=== PATIENT | female | born 1970 | race Caucasian/White ===

== ENCOUNTER 2023-03-25 10:37 | Outpatient (OUT) | payer OTHER, SELFPAY ==
--- NOTE | 2023-03-25 | XR_ITS ---
The [address] [address] Patient Name: EARL BERKOWITZ MRN: [id number] date: 1970 Sex: F Assigned Patient Location: LAB Current Patient Location: Accession/Order Number: [id number] Exam Date: 03/25/2023 11:05 Report Date: 03/27/2023 09:20 At the request of: YENY ELLIOTT Procedure: XR abdomen 1V EXAM: XR abdomen 1V HISTORY: LEFT FLANK PAIN COMPARISON: None. TECHNIQUE: AP view of the abdomen. FINDINGS: Nonobstructive bowel gas pattern is noted. There is no suspicious calcification. The osseous structures are intact. XR/XR abdomen 1V IMPRESSION: Unremarkable exam. Electronically authenticated by: EVELIA PETERSON Date: 03/27/2023 09:20
[2023-03-25 12:25] LABS: Bilirubin Urine NEGATIVE (NEGATIVE); Blood Urine TRACE-I (NEGATIVE); Clarity Urine CLEAR (CLEAR); Color Urine YELLOW (YELLOW); Glucose Urine UA NEGATIVE (NEGATIVE); Ketones Urine NEGATIVE (NEGATIVE); Leukocyte Esterase Urine NEGATIVE (NEGATIVE); Nitrite Urine NEGATIVE (NEGATIVE); Protein Urine NEGATIVE (NEG/TRACE); Specific Gravity Urine 1.025 (1.005-1.025); Urobilinogen Urine 0.2 EU/dL (0.2-1.0)
[2023-03-25 12:52] LABS: Bacteria Urine NONE SEEN #/HPF (NONE SEEN); Mucus Urine TRACE (NONE SEEN); Squamous Epithelial Cell Urine RARE #/LPF (NONE/RARE); WBC Urine 0-2 #/HPF (NONE SEEN)
[2023-03-25 12:53] LABS: Cast Seen? NONE SEEN #/LPF (NONE SEEN); Crystals Seen? None Seen #/HPF (None Seen); Urine Culture Indicated NO
== END 2023-03-25 10:38 | disposition home or self-care (01) ==
PROVIDERS: PCP Nurse Practitioner; Visit Provider Nurse Practitioner
DX: R10.9 Unspecified abdominal pain (principal)
CPT/HCPCS: 74018; 81001

== ENCOUNTER 2023-04-26 12:48 | Outpatient (OUT) | payer OTHER, SELFPAY ==
[2023-04-26 13:07] LABS: Bilirubin Urine NEGATIVE (NEGATIVE); Blood Urine TRACE-L (NEGATIVE); Clarity Urine CLEAR (CLEAR); Color Urine LT. YELLOW (YELLOW); Glucose Urine UA NEGATIVE (NEGATIVE); Ketones Urine NEGATIVE (NEGATIVE); Leukocyte Esterase Urine TRACE (NEGATIVE); Nitrite Urine NEGATIVE (NEGATIVE); Protein Urine NEGATIVE (NEG/TRACE); Specific Gravity Urine <=1.005 (1.005-1.025); Urobilinogen Urine 0.2 EU/dL (0.2-1.0)
[2023-04-26 13:31] LABS: Bacteria Urine NONE SEEN #/HPF (NONE SEEN); Cast Seen? NONE SEEN #/LPF (NONE SEEN); Crystals Seen? None Seen #/HPF (None Seen); Mucus Urine NONE SEEN (NONE SEEN); RBC Urine 0-2 #/HPF (0-2); Squamous Epithelial Cell Urine RARE #/LPF (NONE/RARE); WBC Urine 0-2 #/HPF (NONE SEEN)
== END 2023-04-26 12:49 | disposition home or self-care (01) ==
LOC: LAB 04-28 12:53
PROVIDERS: PCP Nurse Practitioner; Visit Provider Nurse Practitioner
DX: R31.21 Asymptomatic microscopic hematuria (principal)
CPT/HCPCS: 81001

== ENCOUNTER 2023-04-29 09:30 | Outpatient (OUT) | payer OTHER, SELFPAY ==
--- NOTE | 2023-04-29 | CT_ITS ---
[address] [address] Patient Name: EARL BERKOWITZ MRN: [id number] date: 1970 Sex: F Assigned Patient Location: CT Current Patient Location: CT Accession/Order Number: [id number] Exam Date: 04/29/2023 09:57 Report Date: 04/29/2023 16:09 At the request of: YENY ELLIOTT Procedure: CT abdomen pelvis wo con EXAM: CT abdomen pelvis wo con; [id number] REASON FOR EXAM: Left flank pain R10., Asymptomatic microscopic hematuria R31 TECHNIQUE: Helical CT images of the abdomen and pelvis were obtained without IV contrast. Multiplanar reformats were generated at the scanner. Dose reduction technique used: Automated exposure control and/or adjustment of the mA and/or kV according to patient size and/or use of iterative reconstruction technique. COMPARISON: None. FINDINGS: Note: Compared with a contrast-enhanced CT exam, noncontrast images are relatively insensitive for detection of solid organ and vascular abnormalities. Visualized Chest: No pleural effusion or any significant pulmonary findings. Abdomen: Liver: Mildly enlarged measuring 18.8 cm in greatest craniocaudad dimension (normal up to 18 cm). Gallbladder: No calcified gallstones. No acute inflammatory changes. Bile Ducts: No significant biliary ductal dilatation. Pancreas: No ductal dilatation or inflammatory changes. Spleen: No splenomegaly. Adrenals: No nodules. Kidneys: -No stones or hydronephrosis. Vascular: No aortic aneurysm. Lymph Nodes: No adenopathy. Abdominal Wall: No hernia or mass. Pelvis: No mass or adenopathy. No bladder stones. Bowel/Peritoneal Cavity/Mesentery: -No bowel obstruction or significant ileus. -No acute inflammatory changes. -No free air or free fluid. Musculoskeletal: No acute fracture or suspicious osseous lesion. CT/CT abdomen pelvis wo con IMPRESSION: 1. No kidney stones or hydronephrosis. 2. Borderline hepatomegaly. Electronically authenticated by: CHRIS MONSALVE Date: 04/29/2023 16:09
== END 2023-04-29 09:31 | disposition home or self-care (01) ==
PROVIDERS: PCP Nurse Practitioner; Visit Provider Nurse Practitioner
DX: R10.9 Unspecified abdominal pain (principal); R31.21 Asymptomatic microscopic hematuria
CPT/HCPCS: 74176

== ENCOUNTER 2023-08-09 20:49 | Emergency (ER) | payer OTHER, SELFPAY ==
[2023-08-09] VITALS (16 sets, daily range): BP systolic 107–149; BP diastolic 56–81; PULSE 70–85; RESP 14–26; TEMP 36.5; O2SAT 94–99; BMI 23.0
--- NOTE | 2023-08-09 21:09 | ECG_ITS ---
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
--- NOTE | 2023-08-09 21:16 | ED.GENADUL1 ---
Documented by User: KATERINA Valdez 08/09/23 22:13 HPI - General Adult General Chief complaint: Chest Pain Stated complaint: Upper Resiratory Infection Time Seen by Provider: 08/09/23 20:54 Source: patient and family Mode of arrival: walk-in Limitations: no limitations History of Present Illness HPI narrative: Patient is a 53-year-old female who presents to the emergency department with pain in the anterior lower chest and bilateral shoulders for the past several days. She thinks she may have pneumonia. She is a regular smoker and has chronic mild coughing. She has had no fevers, sputum production. She does not complain of shortness of breath. She does have a history of upper abdominal pain and recently had endoscopy performed which was unremarkable. No medications taken prior to arrival today. She denies any history of heart or lung problems. Related Data Home Medications Medication Instructions Recorded Confirmed cetirizine 10 mg tablet mg 08/09/23 triamcinolone acetonide 55 mcg intranasal 08/09/23 nasal spray aerosol Allergies Allergy/AdvReac Type Severity Reaction Status Date / Time nitrofurantoin Allergy Unknown Verified 08/09/23 21:10 [From Macrobid] Review of Systems ROS Constitutional Denies: fever or chills Ears, nose, mouth, and throat Denies: throat pain or nasal congestion Cardiovascular Reports: chest pain Respiratory Reports: cough; Denies: shortness of breath Gastrointestinal Reports: abdominal pain; Denies: nausea or vomiting Musculoskeletal Reports: back pain Integumentary/Breast Denies: rash Neurological Denies: headache PFSH PFSH Social History Smoking status: Current every day smoker Exam Constitutional Vital Signs, click to edit/add: Last Vital Signs Temp 97.7 F 08/09/23 21:05 Pulse 80 08/09/23 21:05 Resp 18 08/09/23 21:05 BP 149/78 H 08/09/23 21:05 Pulse Ox 96 08/09/23 21:05 O2 Del Method Room Air 08/09/23 21:05 Course Vital Signs Vital signs: Vital Signs Temperature 97.7 F 08/09/23 21:05 Pulse Rate 80 08/09/23 21:05 Respiratory Rate 18 08/09/23 21:05 Blood Pressure 149/78 H 08/09/23 21:05 Pulse Oximetry 96 08/09/23 21:05 Oxygen Delivery Method Room Air 08/09/23 21:05 Temperature 97.7 F 08/09/23 21:05 Pulse Rate 80 08/09/23 21:05 Respiratory Rate 18 08/09/23 21:05 Blood Pressure 149/78 H 08/09/23 21:05 Pulse Oximetry 96 08/09/23 21:05 Oxygen Delivery Method Room Air 08/09/23 21:05 Medical Decision Making MDM Narrative Medical decision making narrative: 2213: Patient declined medication for pain medicine in the ER, her vital signs are stable, EKG shows no evidence of acute cardiopulmonary changes. Lab studies including D-dimer and troponin are within normal limits. At this time a lipase is added and the patient is sent for two-view chest x-ray. These results are pending and case is turned over to attending physician Medical Records Medical records reviewed: Yes I reviewed the patient's medical records Lab Data Lab results reviewed: Yes I reviewed the patient's lab results Labs: Lab Results 08/09/23 08/09/23 Range/Units 21:20 21:22 WBC 9.0 (4.0-11.0) 10^3/uL RBC 4.42 (4.20-5.40) 10^6/uL Hgb 13.5 (12.0-16.0) g/dL Hct 40.5 (36.0-48.0) % MCV 91.6 (81.0-99.0) fL MCH 30.5 (26.7-34.0) pg MCHC 33.3 (29.9-35.2) g/dL RDW 13.1 (11.0-15.0) % Plt Count 297 (150-450) 10^3/uL MPV 10.4 (9.5-13.5) fL Neut % (Auto) 60.3 (43.0-75.0) % Lymph % (Auto) 26.9 (20.5-60.0) % Richardson % (Auto) 10.4 (1.7-12.0) % Eos % (Auto) 1.5 (0.9-7.0) % Baso % (Auto) 0.6 (0.2-2.0) % Neut # (Auto) 5.4 (1.4-6.5) 10^3/uL Lymph # (Auto) 2.4 (1.2-3.8) 10^3/uL Richardson # (Auto) 0.9 H (0.3-0.8) 10^3/uL Eos # (Auto) 0.1 (0.0-0.7) 10^3/uL Baso # (Auto) 0.1 (0.0-0.1) 10^3/uL Abs Immat Gran (auto) 0.03 (0.00-0.03) 10^3/uL Imm/Tot Granulo (auto) 0.3 (0.0-0.5) % PT 10.0 (9.0-11.6) sec INR 0.94 D-Dimer <0.19 (<=0.59) mg/L FEU Sodium 140 (136-145) mmol/L Potassium 3.6 (3.5-5.1) mmol/L Chloride 104 (98-107) mmol/L Carbon Dioxide 29.8 (21.0-32.0) mmol/L Anion Gap 9.8 BUN 19.0 H (7.0-18.0) mg/dL Creatinine 0.72 (0.55-1.02) mg/dL Est GFR ( Amer) >60 (>=60) Est GFR (Non-Af Amer) >60 (>=60) BUN/Creatinine Ratio 26.4 Glucose 102 (74-106) mg/dL Calcium 9.8 (8.5-10.1) mg/dL Total Bilirubin 0.3 (0.2-1.0) mg/dL AST 22 (15-37) U/L ALT 37 (14-59) U/L Alkaline Phosphatase 98 (46-116) U/L Troponin I High Sens 5.3 (4.0-51.3) pg/mL NT-Pro-B Natriuret Pep 41.0 (<=900.0) pg/mL Total Protein 7.3 (6.4-8.2) g/dL Albumin 3.5 (3.4-5.0) g/dL Globulin 3.8 g/dL Albumin/Globulin Ratio 0.9 Lipase 40.0 (16.0-77.0) U/L SARS-CoV-2 (PCR) Negative (NEGATIVE) Influenza Type A Ag Negative Influenza Type B Ag Negative ECG Data Attestation: I personally reviewed and interpreted this ECG as follows: (Normal sinus rhythm at a rate of 83, no acute ST elevation or ectopy, EKG reviewed by attending physician) Discharge Plan Discharge Chief Complaint: Chest Pain Clinical Impression: Chest pain Patient Disposition: Home, Self-Care Time of Disposition Decision: 23:03 Condition: Good Prescriptions / Home Meds: No Action cetirizine 10 mg tablet triamcinolone acetonide 55 mcg aerosol,spray INTRANASAL Instructions: Noncardiac Chest Pain (ED) Stand Alone Forms: Portal Instructions Referrals: Joyce Almeida NP [Primary Care Provider] - 1 week ITALIA MEYER [Physician] - 1 week Documented by User: Saira Steele MD 08/09/23 23:07 HPI - General Adult General Chief complaint: Chest Pain Stated complaint: Upper Resiratory Infection Time Seen by Provider: 08/09/23 20:54 Related Data Home Medications Medication Instructions Recorded Confirmed cetirizine 10 mg tablet mg 08/09/23 triamcinolone acetonide 55 mcg intranasal 08/09/23 nasal spray aerosol Allergies Allergy/AdvReac Type Severity Reaction Status Date / Time nitrofurantoin Allergy Unknown Verified 08/09/23 21:10 [From Macrobid] [facility] Social History Smoking status: Current every day smoker Exam Constitutional Vital Signs, click to edit/add: Last Vital Signs Temp 97.7 F 08/09/23 21:05 Pulse 80 08/09/23 21:05 Resp 18 08/09/23 21:05 BP 149/78 H 08/09/23 21:05 Pulse Ox 96 08/09/23 21:05 O2 Del Method Room Air 08/09/23 21:05 Course Vital Signs Vital signs: Vital Signs Temperature 97.7 F 08/09/23 21:05 Pulse Rate 80 08/09/23 21:05 Respiratory Rate 18 08/09/23 21:05 Blood Pressure 149/78 H 08/09/23 21:05 Pulse Oximetry 96 08/09/23 21:05 Oxygen Delivery Method Room Air 08/09/23 21:05 Temperature 97.7 F 08/09/23 21:05 Pulse Rate 80 08/09/23 21:05 Respiratory Rate 18 08/09/23 21:05 Blood Pressure 149/78 H 08/09/23 21:05 Pulse Oximetry 96 08/09/23 21:05 Oxygen Delivery Method Room Air 08/09/23 21:05 Medical Decision Making MDM Narrative Medical decision making narrative: 2213: Patient declined medication for pain medicine in the ER, her vital signs are stable, EKG shows no evidence of acute cardiopulmonary changes. Lab studies including D-dimer and troponin are within normal limits. At this time a lipase is added and the patient is sent for two-view chest x-ray. These results are pending and case is turned over to attending physician This patient was seen and evaluated in conjunction with the physician assistant manager retail. Please refer to full H and P. The patient presents for evaluation of right-sided chest pain/rib pain that has been going on for some time . She states that she thought she had pneumonia because she's had pneumonia in the past causing similar symptoms. She is not having any shortness of breath dizziness or syncope. 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 She states she has had a stress test in the remote past, around 7 years ago. Her workup including EKG, troponin, d-dimer, CBC with differential and comprehensive metabolic profile as well as lipase are negative for any abnormalities. I discussed this with her. I offered her steroids which she declined and she did agree to prescription for anti-inflammatories and was given a prescription for ibuprofen 600 mg. At this time she has no complaint of pain except the IV in her arm. Lab Data Labs: Lab Results 08/09/23 08/09/23 Range/Units 21:20 21:22 WBC 9.0 (4.0-11.0) 10^3/uL RBC 4.42 (4.20-5.40) 10^6/uL Hgb 13.5 (12.0-16.0) g/dL Hct 40.5 (36.0-48.0) % MCV 91.6 (81.0-99.0) fL MCH 30.5 (26.7-34.0) pg MCHC 33.3 (29.9-35.2) g/dL RDW 13.1 (11.0-15.0) % Plt Count 297 (150-450) 10^3/uL MPV 10.4 (9.5-13.5) fL Neut % (Auto) 60.3 (43.0-75.0) % Lymph % (Auto) 26.9 (20.5-60.0) % Richardson % (Auto) 10.4 (1.7-12.0) % Eos % (Auto) 1.5 (0.9-7.0) % Baso % (Auto) 0.6 (0.2-2.0) % Neut # (Auto) 5.4 (1.4-6.5) 10^3/uL Lymph # (Auto) 2.4 (1.2-3.8) 10^3/uL Richardson # (Auto) 0.9 H (0.3-0.8) 10^3/uL Eos # (Auto) 0.1 (0.0-0.7) 10^3/uL Baso # (Auto) 0.1 (0.0-0.1) 10^3/uL Abs Immat Gran (auto) 0.03 (0.00-0.03) 10^3/uL Imm/Tot Granulo (auto) 0.3 (0.0-0.5) % PT 10.0 (9.0-11.6) sec INR 0.94 D-Dimer <0.19 (<=0.59) mg/L FEU Sodium 140 (136-145) mmol/L Potassium 3.6 (3.5-5.1) mmol/L Chloride 104 (98-107) mmol/L Carbon Dioxide 29.8 (21.0-32.0) mmol/L Anion Gap 9.8 BUN 19.0 H (7.0-18.0) mg/dL Creatinine 0.72 (0.55-1.02) mg/dL Est GFR ( Amer) >60 (>=60) Est GFR (Non-Af Amer) >60 (>=60) BUN/Creatinine Ratio 26.4 Glucose 102 (74-106) mg/dL Calcium 9.8 (8.5-10.1) mg/dL Total Bilirubin 0.3 (0.2-1.0) mg/dL AST 22 (15-37) U/L ALT 37 (14-59) U/L Alkaline Phosphatase 98 (46-116) U/L Troponin I High Sens 5.3 (4.0-51.3) pg/mL NT-Pro-B Natriuret Pep 41.0 (<=900.0) pg/mL Total Protein 7.3 (6.4-8.2) g/dL Albumin 3.5 (3.4-5.0) g/dL Globulin 3.8 g/dL Albumin/Globulin Ratio 0.9 Lipase 40.0 (16.0-77.0) U/L SARS-CoV-2 (PCR) Negative (NEGATIVE) Influenza Type A Ag Negative Influenza Type B Ag Negative Discharge Plan Discharge Chief Complaint: Chest Pain Clinical Impression: Chest pain Patient Disposition: Home, Self-Care Time of Disposition Decision: 23:03 Condition: Good Prescriptions / Home Meds: No Action cetirizine 10 mg tablet triamcinolone acetonide 55 mcg aerosol,spray INTRANASAL Instructions: Noncardiac Chest Pain (ED) Stand Alone Forms: Portal Instructions Referrals: Joyce Almeida NP [Primary Care Provider] - 1 week ITALIA MEYER [Physician] - 1 week
[2023-08-09 21:35] LABS: Basophils Absolute Auto 0.1 10^3/uL (0.0-0.1); Basophils Percent Auto 0.6 % (0.2-2.0); Eosinophils Absolute Auto 0.1 10^3/uL (0.0-0.7); Eosinophils Percent Auto 1.5 % (0.9-7.0); Hematocrit 40.5 % (36.0-48.0); Hemoglobin 13.5 g/dL (12.0-16.0); Immature Granulocytes Abs Auto 0.03 10^3/uL (0.00-0.03); Immature Granulocytes Pct Auto 0.3 % (0.0-0.5); Lymphocytes Absolute Auto 2.4 10^3/uL (1.2-3.8); Lymphocytes Percent Auto 26.9 % (20.5-60.0); Mean Corpuscular HGB Conc 33.3 g/dL (29.9-35.2); Mean Corpuscular Hemoglobin 30.5 pg (26.7-34.0); Mean Corpuscular Volume 91.6 fL (81.0-99.0); Mean Platelet Volume 10.4 fL (9.5-13.5); Monocytes Absolute Auto 0.9 10^3/uL (0.3-0.8); Monocytes Percent Auto 10.4 % (1.7-12.0); Neutrophils Absolute Auto 5.4 10^3/uL (1.4-6.5); Neutrophils Percent Auto 60.3 % (43.0-75.0); Platelet Count 297 10^3/uL (150-450); Red Blood Count 4.42 10^6/uL (4.20-5.40); Red Cell Distribution Width 13.1 % (11.0-15.0)
[2023-08-09 21:49] LABS: Influenza Virus A Antigen Negative; Influenza Virus B Antigen Negative; Internal Control Within Normal Limits
[2023-08-09 21:49] LABS: INR 0.94
[2023-08-09 21:50] LABS: SARS-CoV-2 Ag NEGATIVE (NEGATIVE)
[2023-08-09 21:51] LABS: Alanine Aminotransferase 37 U/L (14-59); Albumin Globulin Ratio 0.9; Albumin Level 3.5 g/dL (3.4-5.0); Alkaline Phosphatase 98 U/L (46-116); Anion Gap 9.8; Aspartate Amino Transferase 22 U/L (15-37); BUN Creatinine Ratio 26.4; Bilirubin Total 0.3 mg/dL (0.2-1.0); Calcium 9.8 mg/dL (8.5-10.1); Carbon Dioxide 29.8 mmol/L (21.0-32.0); Chloride 104 mmol/L (98-107); Estimated GFR (African America >60 (>=60); Estimated GFR (Non-African Ame >60 (>=60); Globulin 3.8 g/dL; Glucose 102 mg/dL (74-106); Potassium 3.6 mmol/L (3.5-5.1); Sodium 140 mmol/L (136-145); Total Protein 7.3 g/dL (6.4-8.2)
[2023-08-09 21:55] LABS: D Dimer <0.19 mg/L FEU (<=0.59)
--- NOTE | 2023-08-09 21:56 | XR_ITS ---
The [address] [address] Patient Name: EARL BERKOWITZ MRN: [id number] date: 1970 Sex: F Assigned Patient Location: ER Current Patient Location: ER Accession/Order Number: [id number] Exam Date: 08/09/2023 22:10 Report Date: 08/09/2023 22:40 At the request of: ROSE MARIE MAYER Procedure: XR chest 2V EXAMINATION: XR chest 2V, , 08/09/2023 10:10 PM EST INDICATION: Chest pain HISTORY: Ordering Provider Reason for Exam: Chest pain Technologist Note: Additional: COMPARISON: None. TECHNIQUE: Chest x-ray: Two views. FINDINGS: No pneumothorax, pleural effusion or focal airspace consolidation. Heart is normal in size. Bony thorax is unremarkable. XR/XR chest 2V IMPRESSION: No acute cardiopulmonary process. Electronically authenticated by: JOSLYN HICKS Date: 08/09/2023 22:40
[2023-08-09 21:58] LABS: Troponin I High Sensitivity 5.3 pg/mL (4.0-51.3)
[2023-08-10 12:00] LABS: SARS-CoV-2 NAA NOT DETECTED (NOT DETECTE)
== END 2023-08-09 23:22 | disposition home or self-care (01) ==
PROVIDERS: Physician Assistant; Emergency Provider Emergency Medicine; PCP Nurse Practitioner
DX: R07.9 Chest pain, unspecified (principal); F17.210 Nicotine dependence, cigarettes, uncomplicated; Z20.822 Contact with and (suspected) exposure to COVID-19
CPT/HCPCS: 36415; 71046; 80053; 83690; 83880; 84484; 85025; 85378; 85610; 87635; 87804; 87811; 93005; 99285

== ENCOUNTER 2024-06-12 15:48 | Outpatient (OUT) | payer OTHER, SELFPAY ==
--- NOTE | 2024-06-12 | XR_ITS ---
The [address] [address] Patient Name: EARL BERKOWITZ MRN: [id number] date: 1970 Sex: F Assigned Patient Location: [facility] Current Patient Location: RAD Accession/Order Number: [id number] Exam Date: 06/12/2024 15:58 Report Date: 06/12/2024 16:43 At the request of: YENY ELLIOTT Procedure: XR chest 2V EXAM: XR chest 2V HISTORY: URI J05.9 COMPARISON: Chest radiograph dated 08/09/2023. TECHNIQUE: PA and lateral views of the chest performed. FINDINGS: The trachea is midline. The heart size is normal. The cardiac mediastinal silhouette and hilar shadows are stable and unremarkable. There is no consolidation, pleural effusion or pulmonary vascular congestion. There is no pneumothorax or acute osseous abnormality. XR/XR chest 2V IMPRESSION: There is no acute cardiopulmonary process. Electronically authenticated by: MARÍA MELLO Date: 06/12/2024 16:43
--- OUTSIDE RECORDS SUMMARY | 2024-06-12 16:01 | XMS_ITS | CCD ---
Author Organization [facility] Inform ion [facility] Care Team Providers Care Gemologist Name Role Phone Zak Estrada Unavailable DR EVELIA MURRAY Admitting Unavailable TERRI, DR EVELIA Traylor Attending Unavailable MISC, DR RAMSEY Primary Care Unavailable TERRI, DR EVELIA Traylor Consulting Unavailable HUGH SHEARER Consulting Unavailable AICHHOLZ, MANUFACTURING CHIEF ENGINEER JOYCE Admitting Unavailable AICHHOLZ, MANUFACTURING CHIEF ENGINEER JOYCE Attending Unavailable MISC, DR RAMSEY Primary Care Unavailable AICHHOLZ, MANUFACTURING CHIEF ENGINEER JOYCE Consulting Unavailable MD Jesu Ramirez Attending Provider [phone] Juan Pablo Joyce J. Primary Care Provider Harpal Muñoz Unavailable AICHFLAKO, JOYCE J. Primary Care Unavailable AICHHOLZ, JOYCE J. Referring Unavailable AICHHOLZ, JOYCE J. Referring Unavailable AICHHOLZ, JOYCE J. Primary Care Unavailable AICHHOLZ, JOYCE J Primary Care Unavailable Aichholz, Joyce J Primary Care Provider NEETA Owens Attending Provider Faina Owens Attending Unavailable Faina Owens Admitting Unavailable Aichholz, Joyce J Primary Care Unavailable ELYSSA BENÍTEZ Attending Unavailable Aichholz MUSIC AGENT, Joyce Unavailable bAel Lemus MD Primary Care Provider Aichholyue MUSIC AGENT, Joyce Unavailable AICMARGY JOYCE Attending Unavailable URBANOHOLZ JOYCE Attending Unavailable JUAN PABLO JOYCE Attending Unavailable FAINA OWENS Attending Unavailable AICHHOLYue, JOYCE Attending Unavailable MOO PIERSON Attending Unavailable GABRIELLA HACKETT Attending Unavailable Allergies Allergy Classification Reported Allergen(s) Allergy Type Date of Onset Reaction(s) Facility (3 sources) Nitrofurantoin Drug Allergy 4 Itching [facility] Healthcare (3 sources) Other Allergy to substance 3 Unknown [facility] Work Phone: Medications Current Medications Medication Drug Class(es) Dates Sig (Normalized) Sig (Original) cetirizine hydrochloride 10 mg oral tablet (4 sources) Histamine-1 Receptor Antagonist Start: 4 take 1 tablet by mouth once daily cetirizine (ZyrTEC) 10 MG tablet Indications: Gastroesophageal reflux disease, unspecified whether esophagitis present Take 1 tablet (10 mg) by mouth Daily 30 tablet 3 02/14/2024 Active cyclobenzaprine hydrochloride 10 mg oral tablet (3 sources) Muscle Relaxant Start: 4 take 1 tablet by mouth twice daily as needed cyclobenzaprine (Flexeril) 10 MG tablet Take 10 mg by mouth 2 (two) times a day as needed 01/11/2024 Active dextromethorphan hydrobromide 1.5 mg/ml / pyrilamine maleate 1.5 mg/ml oral solution (1 source) Uncompetitive Z-sipaiz-[place]-aspart[place] te Receptor Antagonist, Sigma-1 Agonist Start: 4 take 1 mL by mouth every eight hours Pyrilamine-Dextrometh orphan ([place] Dm) 7.5-7.5 mg/5 mL liquid Active 10 ML PO Every 8 hours 150 5 November 11, 2023 12:00am FLUoxetine 10 mg oral capsule (1 source) Serotonin Reuptake Inhibitor Start: 4 take 10 mg by mouth once daily Fluoxetine Active 10 MG PO Daily November 11, 2023 12:00am gabapentin 100 mg oral capsule (2 sources) Anti-epileptic Agent take 1 capsule by mouth in the morning, then take 2 capsules by mouth at bedtime gabapentin (Neurontin) 100 MG capsule TAKE 1 CAPSULE BY MOUTH IN THE MORNING and 2 (TWO) CAPSULES BY MOUTH AT BEDTIME Active methylPREDNISolone 4 mg oral tablet (1 source) Corticosteroid Start: 4 take 1 tablet by mouth once Methylprednisolone (Medrol (Agustín)) 4 mg tablets,dose pack Active 0 PO per package directions November 11, 2023 12:00am PO PER PKG DIR for 6 days rizatriptan 10 mg oral tablet (3 sources) Serotonin-1b and Serotonin-1d Receptor Agonist Start: 4 rizatriptan (Maxalt) 10 MG tablet Indications: Migraine without aura and without status migrainosus, not intractable (CMS/HCC) 1 po q at onset of the migraine and may repeat x1 in 2 hours of needed max 2 / day, 2 day/week 9 tablet 2 04/02/2024 Active triamcinolone acetonide 0.055 mg/actuat metered dose nasal spray (1 source) Corticosteroid Start: 4 Triamcinolone Acetonide Active INTRANASAL November 11, 2023 12:00am Completed/Discontinued Medications Medication Drug Class(es) Dates Sig (Normalized) Sig (Original) omeprazole 20 mg delayed release oral capsule (2 sources) Proton Pump Inhibitor Start: 09-03-2021 End: 11-11-2023 take 20 mg by mouth once daily Omeprazole Discontinued 20 MG PO Daily September 03, 2021 1:00am November 11, 2023 1:20pm Problems Active Problems Problem Classification Problem Date Documented Da te Episodic/Chronic Anxiety disorders (4 sources) Anxiety; Translations: [Anxiety disorder, unspecified] Onset: 4 08-17-2023 Chronic Disorders of lipid metabolism (2 sources) Pure hypercholesterolemia, unspecified; Translations: [Pure hypercholesterolemia, unspecified] Onset: 4 Chronic Esophageal disorders (6 sources) Gastroesophageal reflux disease; Translations: [Gastro-esophageal reflux disease without esophagitis] Onset: 4 09-03-2021 Chronic Headache; including migraine (6 sources) Tension-type headache; Translations: [Tension-type headache, unspecified, not intractable] Onset: 4 01-05-2024 Chronic Nonspecific chest pain (5 sources) Chest pain, unspecified; Translations: [Chest pain] Onset: 4 Episodic Other and unspecified benign neoplasm (2 sources) Melanocytic nevus of trunk; Translations: [Melanocytic nevi of trunk] 06-04-2024 Episodic Other circulatory disease (2 sources) Spider nevus; Translations: [Nevus, non-neoplastic] 06-04-2024 Episodic Other connective tissue disease (1 source) Pain in left arm; Translations: [Pain in left arm] Onset: 4 Episodic Other connective tissue disease (1 source) Pain in upper limb Onset: 4 Episodic Other gastrointestinal disorders (6 sources) Dysphagia; Translations: [Dysphagia, unspecified] 09-03-2021 Episodic Other lower respiratory disease (2 sources) Shortness of breath; Translations: [Shortness of breath] Onset: 4 Episodic Other nutritional; endocrine; and metabolic disorders (4 sources) Abnormal weight gain; Translations: [ABNORMAL WEIGHT GAIN] Onset: 2 Episodic Other screening for suspected conditions (not mental disorders or infectious disease) (1 source) Patient encounter status; Translations: [Encounter for screening mammogram for malignant neoplasm of breast] Episodic Other skin disorders (2 sources) Seborrheic keratosis; Translations: [Other seborrheic keratosis] 06-04-2024 Episodic Other skin disorders (2 sources) Inflamed seborrheic keratosis; Translations: [Inflamed seborrheic keratosis] 06-04-2024 Episodic Other upper respiratory infections (2 sources) Chronic frontal sinusitis; Translations: [Chronic frontal sinusitis] Chronic Unclassified (1 source) Burning Arm Pain Onset: 4 Past or Other Problems Problem Classification Problem Date Documented Da te Episodic/Chronic Nonmalignant breast conditions (4 sources) Mastodynia; Translations: [Mastodynia of bilateral breasts] Onset: 11-14-2023 11-14-2023 Episodic Other circulatory disease (4 sources) Other specified symptoms and signs involving the circulatory and respiratory systems; Translations: [OTH SPEC SX SIGNS INVLV CIRC RS] Onset: 08-18-2021 Episodic Other connective tissue disease (3 sources) Muscle pain; Translations: [Myalgia, unspecified site] Onset: 08-17-2023 08-17-2023 Episodic Other gastrointestinal disorders (1 source) Dysphagia, unspecified Onset: 08-23-2021 Resolved: 08-23-2021 Episodic Other nervous system disorders (3 sources) Paresthesia; Translations: [Paresthesia of skin] Onset: 01-05-2024 01-05-2024 Episodic Other nervous system disorders (3 sources) Anesthesia of skin; Translations: [Anesthesia of skin] Onset: 01-08-2024 01-08-2024 Episodic Other nervous system disorders (3 sources) Hyperreflexia; Translations: [Abnormal reflex] Onset: 01-08-2024 01-08-2024 Episodic Other upper respiratory infections (5 sources) Acute pharyngitis, unspecified; Translations: [Pharyngitis] Onset: 08-19-2021 Resolved: 10-16-2023 Episodic Residual codes; unclassified (3 sources) Tobacco user; Translations: [Tobacco use] Onset: 08-17-2023 08-17-2023 Episodic Residual codes; unclassified (3 sources) Pain; Translations: [Pain, unspecified] Onset: 01-08-2024 01-08-2024 Episodic Residual codes; unclassified (3 sources) Body mass index 20-24 - normal; Translations: [Body mass index (BMI) 23.0-23.9, adult] Onset: 08-17-2023 Resolved: 08-17-2023 08-17-2023 Episodic Results Test Name Value Interpretation Reference Range Facility No Panel Informationon 06-04 [facility] Visiton 05-10-2024 Follow-up visit [id number] Kaitlyn Ceballos 1970 F Date Provider Department Center 05/10/2024 [id number] BENÍTEZ WHITNEY [facility] Family History Problem Relation Age of Onset No Known Problems Mother Heart failure Father Heart disease Father Family Status - Relation Status Age at Mother Father Level of Service:91358 [place] OFFICE/OUTPATIENT NEW MODERATE MDM 45 MINUTES Reason for Visit and Comments: New Patient [632] - Pt is here for chest pain. Normal [facility] MR head/brain wo/w conon MR head/brain wo/w [facility] [place] [address] MRI Report Signed Patient: Kaitlyn Ceballos MR#: [id number] : 1970 Acct:[id number] Age/Sex: 54 / F ADM Date: 04/01/24 Loc: MR Room: Type: [facility] Attending Dr: Faina Owens APRN Copies to: Faina Owens APRN Ordering Provider: Faina Owens APRN Date of Service: 04/01/24 MR/MR head/brain wo/w con: R29.2, R20.2 MR head/brain wo/w con 04/01/2024 1:29 PM SIGN AND SYMPTOMS: Neurogenic pain over the entire body PROTOCOL: Multiplanar multisequence MR images of the brain were obtained with and without IV contrast CONTRAST: 12 mL of intravenous ProHance COMPARISON: None. FINDINGS: Extra axial spaces: Age appropriate. Hemorrhage: None. Ventricular system: Within normal limits. Basal cisterns: Within normal limits and not effaced. Cerebral parenchyma: Normal in signal. No abnormal postcontrast enhancement. Midline shift: None.. Cerebellum: Within normal limits. Brainstem: Within normal limits. OTHER: Calvarium: Normal marrow signal. Vascular system: Satisfactory flow voids within the anterior and posterior circulation. Visualized Paranasal sinuses: Within normal limits. Visualized Orbits: Within normal limits. Visualized upper cervical spine: Within normal limits. Sella and skull base: Within normal limits. MR/MR head/brain wo/w con IMPRESSION: No acute intracranial pathology or abnormal postcontrast enhancement. Impression dictated by: Evelia Gimenez M.D.04/01/2024 4:18 PM Dictation Location: [place] [address] Transcribed By: [facility] 04/01/24 1618 Dictated By: Evelia Gimenez II, MD 04/01/24 1615 Signed By: 04/01/24 1618 Normal [facility] DIGITAL DIAGNOSTIC BILATERALon 12-08-2023 [facility] DIGITAL DIAGNOSTIC BILATERAL EXAMINATION: DIAGNOSTIC DIGITAL BILATERAL BREASTS MAMMOGRAM WITH TOMOSYNTHESIS, 12/08/2023 1:45 pm TECHNIQUE: Diagnostic mammography of the bilateral breasts was performed with tomosynthesis. 2D standard and 3D tomosynthesis combination imaging performed through both breasts. Computer aided detection was utilized in the interpretation of this exam. Views: Bilateral breast diagnostic mammogram performed including standard CC and MLO views with tomosynthesis. COMPARISON: Prior mammograms most recent dated 12/03/2022. HISTORY: ORDERING SYSTEM PROVIDED HISTORY: Pain of both breasts TECHNOLOGIST PROVIDED HISTORY: Is the patient ?->No 53-year-old female presents with nonfocal diffuse bilateral breast pain. FINDINGS: There are scattered areas of fibroglandular density. Right breast: No evidence of dominant mass, suspicious clusters of microcalcifications or architectural distortion. Left breast: No evidence of dominant mass, suspicious clusters of microcalcifications or architectural distortion. IMPRESSION: No mammographic evidence of malignancy. No suspicious imaging correlate for the nonfocal bilateral breast pain. Clinical follow-up is advised. BI-RADS 1 BIRADS: BIRADS - CATEGORY 1 Negative. Clinical follow-up is advised. Patient will be due for annual screening mammogram in 12 months. OVERALL ASSESSMENT - NEGATIVE A letter of notification will be sent to the patient regarding the results. [employer] recommends annual mammograms for women 40 years and older. Interpreted by: Sangeetha Lynn MD Signed by: Sangeetha Lynn MD 12/08/23 Final result Normal [facility] Quick Strepon 05-26-2023 S. pyogenes Org specific cx Ql (Throat) Negative [facility] [employer] Other Quick Strep Located Within [facility] [employer] Other [facility] DIGITAL SCREEN SELF REFERRAL W OR WO CAD BILATERALon 12-05-2022 No mammographic findings of malignancy. BI-RADS 1 BIRADS - CATEGORY 1 Negative, no evidence of malignancy. Normal interval follow-up is recommended in 12 months. OVERALL ASSESSMENT - NEGATIVE A letter of notification will be sent to the patient regarding the results. [employer] recommends annual mammograms for women 40 years and older. [facility] EXAMINATION: SCREENING DIGITAL BILATERAL MAMMOGRAM WITH TOMOSYNTHESIS, 12/03/2022 TECHNIQUE: Screening mammography of the bilateral breasts was performed with tomosynthesis. 2D standard and 3D tomosynthesis combination imaging performed through both breasts in the MLO and CC projection. Computer aided detection was utilized in the interpretation of this exam. COMPARISON: Mammogram dated 11/13/2021, 10/10/2020, 05/22/2017 HISTORY: Screening. FINDINGS: There are scattered areas of fibroglandular density. There is no suspicious mass, architectural distortion, or calcification. [facility] DIGITAL SCREEN SELF REFERRAL W OR WO CAD BILATERALOrdered By: Archana Montero on 12-05-2022 [facility] Work Phone: [facility] DIGITAL SCREEN SELF REFERRAL W OR WO CAD BILATERALon 12-03-2022 Radiology Study observation (narrative) [facility] CBC AUTO DIFFon 04-09-2022 BASO # 0.1 103/ul Normal 0.0-0.1 [facility] Comment on above: Performed By: #### C BC #### [facility] [address] [place] [address] Dr. Kenny An Basophils/100 WBC (Bld) 0.9 % Normal 0.2-2.0 [facility] Comment on above: Performed By: #### C BC #### [facility] [address] [place] [address] Dr. Kenny An EO # 0.1 103/ul Normal 0.0-0.7 [facility] Comment on above: Performed By: #### C BC #### [facility] [address] [place] [address] Dr. Kenny An Eosinophils/100 WBC (Bld) 2.1 % Normal 0.9-7.0 [facility] Comment on above: Performed By: #### C BC #### [facility] [address] [place] [address] Dr. Kenny An Erythrocyte distribution width (RBC) [Ratio] 13.2 % Normal 11.0-15.0 [facility] Comment on above: Performed By: #### C BC #### [facility] [address] [place] [address] Dr. Kenny An Hematocrit (Bld) [Volume fraction] 38.8 % Normal 36.0-48.0 [facility] Comment on above: Performed By: #### C BC #### [facility] [address] [place] [address] Dr. Kenny An Hemoglobin (Bld) [Mass/Vol] 13.1 g/dL Normal 12.0-16.0 [facility] Comment on above: Performed By: #### C BC #### [facility] [address] [place] [address] Dr. Kenny An IG # 0.01 10e3/ul Normal 0.00-0.03 [facility] Comment on above: Performed By: #### C BC #### [facility] [address] [place] [address] Dr. Kenny An IG % 0.2 % Normal 0.0-0.5 [facility] Comment on above: Performed By: #### C BC #### [facility] [address] [place] [address] Dr. Kenny An LYMPH # 1.7 103/ul Normal 1.2-3.8 [facility] Comment on above: Performed By: #### C BC #### [facility] [address] [place] [address] Dr. Kenny An Lymphocytes/100 WBC (Bld) 32.2 % Normal 20.5-60.0 [facility] Comment on above: Performed By: #### C BC #### [facility] [address] [place] [address] Dr. Kenny An MANUAL DIFF REQ NO Normal [facility] Comment on above: Performed By: #### C BC #### [facility] [address] [place] [address] Dr. Kenny An MCH (RBC) [Entitic mass] 30.5 pg Normal 26.7-34.0 [facility] Comment on above: Performed By: #### C BC #### [facility] [address] [place] [address] Dr. Kenny An MCHC (RBC) [Mass/Vol] 33.8 g/dL Normal 29.9-35.2 [facility] Comment on above: Performed By: #### C BC #### [facility] [address] [place] [address] Dr. Kenny An MCV (RBC) [Entitic vol] 90.4 fL Normal 81.0-99.0 [facility] Comment on above: Performed By: #### C BC #### [facility] [address] [place] [address] Dr. Kenny An MONO # 0.6 103/ul Normal 0.3-0.8 [facility] Comment on above: Performed By: #### C BC #### [facility] [address] [place] [address] Dr. Kenny An Monocytes/100 WBC (Bld) 11.0 % Normal 1.7-12.0 [facility] Comment on above: Performed By: #### C BC #### [facility] [address] [place] [address] Dr. Kenny An NEUT # 2.8 103/ul Normal 1.4-6.5 [facility] Comment on above: Performed By: #### C BC #### [facility] [address] [place] [address] Dr. Kenny An Neutrophils/100 WBC (Bld) 53.6 % Normal 43.0-75.0 [facility] Comment on above: Performed By: #### C BC #### [facility] [address] [place] [address] Dr. Kenny An Platelet mean volume (Bld) [Entitic vol] 9.8 fL Normal 9.5-13.5 [facility] Comment on above: Performed By: #### C BC #### [facility] [address] [place] [address] Dr. Kenny An PLT 254 103/ul Normal 150-450 [facility] Comment on above: Performed By: #### C BC #### [facility] [address] [place] [address] Dr. Kenny An RBC 4.29 106/ul Normal 4.20-5.40 [facility] Comment on above: Performed By: #### C BC #### [facility] [address] [place] [address] Dr. Kenny An WBC 5.3 103/ul Normal 4.0-11.0 [facility] Comment on above: Performed By: #### C BC #### [facility] [address] [place] [address] Dr. Kenny An FREE T4on 04-09-2022 Free T4 [Mass/Vol] 1.13 ng/dL Normal 0.76-1.46 [facility] Comment on above: Performed By: #### F T4 #### [facility] [address] [place] [address] [address] Kenny An LIPID PROFILEon 04-09-2022 CHOL-HDL RATIO NORM SEE BELOW Normal [facility] Comment on above: Result Comment: 3.3 - 4.4 LOW RISK 4.4 - 7.1 AVERAGE RISK 7.1 - 11.0 MODERATE RISK >11.0 HIGH RISK Performed By: #### C MP, TSH, LIPID #### [facility] [address] [place] [address] [address] Kenny An Cholesterol [Mass/Vol] 167 mg/dL Normal <=200 [facility] Comment on above: Performed By: #### C MP, TSH, LIPID #### [facility] [address] [place] [address] [address] Kenny An Cholesterol in HDL [Mass/Vol] 61 mg/dL Critically high 40-60 [facility] Comment on above: Performed By: #### C MP, TSH, LIPID #### [facility] [address] [place] [address] [address] Kenny An Cholesterol in LDL [Mass/Vol] 98.4 mg/dL Normal [facility] Comment on above: Performed By: #### C MP, TSH, LIPID #### [facility] [address] [place] [address] [address] Kenny An Cholesterol.total/Cho lesterol in HDL [Mass ratio] 2.7 {ratio} Normal [facility] Comment on above: Performed By: #### C MP, TSH, LIPID #### [facility] [address] [place] [address] [address] Kenny An HDL NORMAL > or = 60 mg/dl - LOW CARDIOVASCULAR RISK <40 mg/dl - HIGH CARDIOVASCULAR RISK Normal [facility] Comment on above: Performed By: #### C MP, TSH, LIPID #### [facility] [address] [place] [address] [address] Kenny An LDL CALC NORMAL SEE BELOW Normal [facility] Comment on above: Result Comment: <100 mg/dl OPTIMAL 100 - 129 mg/dl NEAR OR ABOVE OPTIMAL 130 - 159 mg/dl BORDERLINE HIGH 160 - 189 mg/dl HIGH >190 mg/dl VERY HIGH Performed By: #### C MP, TSH, LIPID #### [facility] [address] [place] [address] Dr. Kenny An Triglyceride [Mass/Vol] 38 mg/dL Normal <=150 [facility] Comment on above: Performed By: #### C MP, TSH, LIPID #### [facility] [address] [address] [address] Kenny An VLDL CALC 7.6 mg/dL Normal [facility] Comment on above: Performed By: #### C MP, TSH, LIPID #### [facility] [address] [place] [address] Dr. Kenny An PROF 14(COMP METB)on 022 Albumin [Mass/Vol] 3.6 g/dL Normal 3.4-5.0 [facility] Comment on above: Performed By: #### C MP, TSH, LIPID #### [facility] [address] [place] [address] Dr. Kenny An Albumin/Globulin [Mass ratio] 1.1 {ratio} Normal [facility] Comment on above: Performed By: #### C MP, TSH, LIPID #### [facility] [address] [place] [address] Dr. Kenny An ALP [Catalytic activity/Vol] 85 U/L Normal 46-116 [facility] Comment on above: Performed By: #### C MP, TSH, LIPID #### [facility] [address] [place] [address] Dr. Kenny An ALT [Catalytic activity/Vol] 31 U/L Normal 14-59 [facility] Comment on above: Performed By: #### C MP, TSH, LIPID #### [facility] [address] [place] [address] Dr. Kenny An Anion gap [Moles/Vol] 9.1 mmol/L Normal [facility] Comment on above: Performed By: #### C MP, TSH, LIPID #### [facility] [address] [place] [address] Dr. Kenny An AST [Catalytic activity/Vol] 21 U/L Normal 15-37 [facility] Comment on above: Performed By: #### C MP, TSH, LIPID #### [facility] [address] [place] [address] Dr. Kenny An Bilirubin [Mass/Vol] 0.6 mg/dL Normal 0.2-1.0 [facility] Comment on above: Performed By: #### C MP, TSH, LIPID #### [facility] [address] [place] [address] Dr. Kenny An Calcium [Mass/Vol] 9.2 mg/dL Normal 8.5-10.1 [facility] Comment on above: Performed By: #### C MP, TSH, LIPID #### [facility] [address] [place] [address] Dr. Kenny An Chloride [Moles/Vol] 104 mmol/L Normal 98-107 [facility] Comment on above: Performed By: #### C MP, TSH, LIPID #### [facility] [address] [place] [address] Dr. Kenny An CO2 [Moles/Vol] 30.7 mmol/L Normal 21.0-32.0 [facility] Comment on above: Performed By: #### C MP, TSH, LIPID #### [facility] [address] [place] [address] Dr. Kenny An Creatinine [Mass/Vol] 0.72 mg/dL Normal 0.55-1.02 [facility] Comment on above: Performed By: #### C MP, TSH, LIPID #### [facility] [address] [place] [address] Dr. Kenny An EGFR-AF SYRIAN >60 Normal >=60 [facility] Comment on above: Performed By: #### C MP, TSH, LIPID #### [facility] [address] [place] [address] Dr. Kenny An EGFR-NON AF SYRIAN >60 Normal >=60 [facility] Comment on above: Performed By: #### C MP, TSH, LIPID #### [facility] [address] [address] [address] Kenny An Globulin (S) [Mass/Vol] 3.3 g/dL Normal [facility] Comment on above: Performed By: #### C MP, TSH, LIPID #### [facility] [address] [address] [address] Kenny An Glucose [Mass/Vol] 91 mg/dL Normal 74-106 [facility] Comment on above: Performed By: #### C MP, TSH, LIPID #### [facility] [address] [place] [address] Dr. Kenny An Potassium [Moles/Vol] 3.8 mmol/L Normal 3.5-5.1 [facility] Comment on above: Performed By: #### C MP, TSH, LIPID #### [facility] [address] [place] [address] Dr. Kenny An Protein [Mass/Vol] 6.9 g/dL Normal 6.4-8.2 [facility] Comment on above: Performed By: #### C MP, TSH, LIPID #### [facility] [address] [place] [address] Dr. Kenny An Sodium [Moles/Vol] 140 mmol/L Normal 136-145 [facility] Comment on above: Performed By: #### C MP, TSH, LIPID #### [facility] [address] [place] [address] Dr. Kenny An Urea nitrogen [Mass/Vol] 13.0 mg/dL Normal 7.0-18.0 [facility] Comment on above: Performed By: #### C MP, TSH, LIPID #### [facility] [address] [place] [address] Dr. Kenny An Urea nitrogen/Creatinine [Mass ratio] 18.1 mg/mg Normal [facility] Comment on above: Performed By: #### C MP, TSH, LIPID #### [facility] [address] [place] [address] Dr. Kenny An TSHon 04-09-2022 TSH 0.972 uIU/mL Normal 0.358-3.740 [facility] Comment on above: Performed By: #### C MP, TSH, LIPID #### [facility] [address] [place] [address] Dr. Kenny An XR NECK SOFT TISSUEon 2021 XR NECK SOFT TISSUE EXAM: XR NECK SOFT TISSUE HISTORY: Pain COMPARISON: None. TECHNIQUE: 2 views of the soft tissues of the neck are performed. FINDINGS: The epiglottis is normal. Normal precervical soft tissues. Normal visualized trachea. The paranasal sinuses are clear. The bony structures are unremarkable. IMPRESSION: Normal examination of the soft tissues of the neck. Electronically authenticated by: HUGH SHEARER Date: 2021-08-18 20:20 Normal [facility] Vital Signs Date Time Vital Sign Value Performing Clinician Facility 04-01-2024 13:34-0400 Body height 162.56 cm Joyce SerratoeÇ[employer]juan[employer] Work Phone: [facility] 04-01-2024 13:34-0400 Body weight 61.23 kg Joyce Almeida Work Phone: [facility] 05-26-2023 14:50-0400 Body height 160.02 cm Harpal Muñoz Other [facility] Other 05-26-2023 14:50-0400 Body mass index (BMI) [Ratio] 23.88 kg/m2 Harpal Muñoz Other [facility] Other 05-26-2023 14:50-0400 Body temperature 96.6 [degF] Harpal Muñoz Other [facility] Other 05-26-2023 14:50-0400 Body weight 61.15 kg Harpal Muñoz Other [facility] Other 05-26-2023 14:50-0400 Diastolic blood pressure 67 mm[Hg] Harpal Muñoz Other [facility] Other 05-26-2023 14:50-0400 Respiratory rate 18 /min Harpal Muñoz Other [facility] Other 05-26-2023 14:50-0400 SaO2% (BldA) [Mass fraction] 98 % Harpal Muñoz Other [facility] Other 05-26-2023 14:50-0400 Systolic blood pressure 114 mm[Hg] Harpal Muñoz Other [facility] Other Encounters Encounter Date Encounter Type Care Provider Facility Start: 06-04-2024 End: 06-04-2024 Office outpatient visit 15 minutes Gabriella A Felter CLARIFYING PLANT OPERATOR-MANUFACTURING CHIEF ENGINEER Work Phone: [facility] Comment on above: Melanocytic nevus of trunk (Primary Dx); Seborrheic keratosis; Capillary angioma; Inflamed seborrheic keratosis Start: 06-04-2024 End: 06-04-2024 ambulatory GABRIELLA A FELTER Not Available Start: 06-04-2024 End: 06-04-2024 Bamboo flowsheet Gabriella A Felter CLARIFYING PLANT OPERATOR-MANUFACTURING CHIEF ENGINEER Work Phone: [facility] Start: 06-04-2024 End: 06-04-2024 Bamboo flowsheet Gabriella A Felter CLARIFYING PLANT OPERATOR-MANUFACTURING CHIEF ENGINEER Work Phone: [facility] Start: 05-10-2024 End: 05-10-2024 ambulatory [facility] Start: 04-02-2024 End: 04-02-2024 ambulatory MOO PIERSON Not Available Start: 04-01-2024 End: 04-01-2024 Patient encounter procedure Joyce Almeida Work Phone: [facility] [place] Work Phone: Start: 04-01-2024 End: 04-01-2024 ambulatory Joyce Almeida Work Phone: [facility] Work Phone: Start: 03-11-2024 End: 03-11-2024 ambulatory JOYCE ALMEIDA Not Available Start: 01-11-2024 End: 01-11-2024 Emergency department patient visit JOYCE ALMEIDA [facility] Start: 01-08-2024 End: 01-08-2024 ambulatory FAINA OWENS Not Available Start: 12-08-2023 End: 12-11-2023 ambulatory JOYCE ALMEIDA [facility] Start: 10-05-2023 End: 10-05-2023 ambulatory JOYCE CLEMENTSANJUANITAYue Not Available Start: 10-02-2023 End: 10-02-2023 ambulatory JOYCE CLEMENTHOLYue Not Available Start: 08-17-2023 End: 08-17-2023 ambulatory JOYCE CLEMENTHOLZ Not Available Start: 05-26-2023 End: 05-26-2023 ambulatory Harpal Muñoz Other [facility] Other Start: 05-26-2023 Office outpatient vi sit 15 minutes Harpal Muñoz [facility] Start: 12-03-2022 End: 12-05-2022 Subsequent hospital visit by physician Brandyn Elizabeth 1 [facility] Comment on above: Visit for screening mammogram Start: 07-19-2022 End: 07-19-2022 ambulatory MD Jesu Ramirez Work Phone: [facility] Work Phone: Start: 07-19-2022 End: 07-19-2022 Departed Referred MD Jesu Ramirez Work Phone: [facility] [place] Start: 04-09-2022 End: 04-10-2022 ambulatory MANUFACTURING CHIEF ENGINEER JOYCE CLEMENTSANJUANITAYue Facility: Start: 08-23-2021 End: 08-23-2021 ambulatory Zak Estrada Other [facility] Other Start: 08-23-2021 Telephone encounter Zak Estrada [facility] Start: 08-18-2021 End: 08-18-[address] EVELIA MURRAY Facility:H1 Procedures Date Procedure Procedure Detail Performing Clinician Start: 06-04-2024 CRYOTHERAPY SKIN LESION Gabriella Hackett CLARIFYING PLANT OPERATOR-MANUFACTURING CHIEF ENGINEER Work Phone: Start: 04-01-2024 MRI of head Joyce Pebbles ledbetter Work Phone: Start: 12-11-2023 Mammography Gabriella Sierra lter CLARIFYING PLANT OPERATOR-MANUFACTURING CHIEF ENGINEER Work Phone: Start: 12-03-2022 Screening mammograph y bi 2-view breast inc cad Joyce Almeida Work Phone: Start: 08-07-2002 Colonoscopy Gabriella Sierra lter CLARIFYING PLANT OPERATOR-MANUFACTURING CHIEF ENGINEER Work Phone: Plan of Treatment Date Care Activity Detail Author Start: 06-09-2025 End: 06-09-2025 Patient encounter procedure 06/09/2025 4:05 PM EST Office Visit [facility] [address] [place] [id number] Gabriella Hackett, CLARIFYING PLANT OPERATOR-MANUFACTURING CHIEF ENGINEER [address] [place] [address] [facility] Start: 12-10-2024 Screening for malign ant neoplasm of breast Mammogram [facility] Start: 12-03-2024 Screening for malign ant neoplasm of breast Breast cancer screen [facility] Start: 07-08-2024 End: 07-08-2024 Patient encounter procedure 07/08/2024 4:30 PM EST Office Visit [facility] [address] [place] [id number] Joyce Almeida, MEL [address] [place] [address] [facility] Start: 06-25-2024 End: 06-25-2024 Patient encounter procedure 06/25/2024 4:20 PM EST Office Visit [facility] [address] [place] [address] Faina Owens NP [address] [place] [facility] [address] Start: 06-04-2024 End: 06-04-2024 Patient encounter procedure 06/04/2024 4:05 PM EDT Office Visit [facility] [address] [place] [address] Gabriella Hackett Dawood, CLARIFYING PLANT OPERATOR-MANUFACTURING CHIEF ENGINEER [address] [place] [address] Arrived [facility] Comment on above: Arrived Start: 03-07-2023 Influenza vaccination Flu vacc ine (Season Ended) [facility] Start: 01-16-2018 Shingles vaccine (1 of 2) Shingles vaccine (1 of 2) [facility] Start: 01-16-2013 Screening for malign ant neoplasm of colon [facility] Start: 08-07-2012 Screening for malign ant neoplasm of colon [facility] Start: 2008 Lipid panel Lipids [facility] Start: 01-16-1998 Screening for malign ant neoplasm of cervix [facility] Start: 01-16-1989 Screening for malign ant neoplasm of cervix Pap smear [facility] Start: 01-16-1987 DTaP/Tdap/Td vaccine (1 - Tdap) DTaP/Tdap/Td vaccine (1 - Tdap) [facility] Start: 01-16-1986 Hepatitis C screening Hepatitis C sc reen [facility] Start: 01-16-1983 HIV screening HIV screen [facility] Start: 1980 Depression Screen Depression Screen [facility] Start: 1970 COVID-19 Vaccine (#1) COVID-19 Vacci ne (#1) [facility] Start: 1968 Screening for malign ant neoplasm of colon [facility] Healthcare Payers Date Payer Category Payer Self-pay [id number] 2023 Private Health Insurance [employer] [id number] 2023 Private Health Insurance [id number] 2023 Unknown [id number] 1968 Unknown [id number] [id number]. 2.593 1968 Unknown [id number] [id number]. 2.593 1968 Unknown [id number] 2.16.840.1.234747.3.579. 2.177 1968 Unknown [id number] 2.16.840.1.752909.3.579. 2.177 1968 Unknown [id number] 2.16.840.1.266229.3.579. 2.1286 1968 Unknown [id number] 2.16.840.1.856103.3.579. 2.1259 1968 Unknown [id number] 2.16.840.1.872075.3.579. 2.9 1968 Unknown [id number] 2.16.840.1.044205.3.579. 2.1259 1968 Unknown [id number] 2.16.840.1.334688.3.579. 2.1259 1968 Unknown [id number] 2.16.840.1.584088.3.579. 2.1259 1968 Unknown [id number] 2.16.840.1.726123.3.579. 2.1259 1968 Unknown [id number] 2.16.840.1.601074.3.579. 2.1259 1959 Unknown [id number] [id number] Unknown HCAP/HFA/FAP Active [id number] Unknown [id number]. 2.531 Social History Date Type Detail Facility Unknown if ever smoked [facility] Other Start: 08-10-2023 End: 10-05-2023 Sex Assigned At [facility] Start: 09-03-2021 End: 09-03-2021 Tobacco smoking status [facility] Smoker (finding) [facility] Start: 1970 Sex Assigned At Female [facility] Start: 12-03-2022 Tobacco smoking status [facility] Tobacco smoking consumption unknown [facility] [place] [facility] Start: 1970 Sex Assigned At Not on file [facility] Work Phone: Start: 04-02-2024 Tobacco smoking status [facility] Smokes tobacco daily [facility] History of tobacco use Cigarette Smoker [facility] Start: 08-10-2023 End: 04-02-2024 Cigarettes smoked current (pack per day) - Reported 0.3 [facility] Start: 04-02-2024 Tobacco use and exposure User of smokeless tobacco [facility] Start: 04-02-2024 End: 06-04-2024 Alcoholic beverage intake Ex-drinker (finding) [facility] Within the last year , have you been afraid of your partner or ex-partner? No [facility] How often do you att end meetings of the clubs or organizations you belong to? Patient declined [facility] Are you now , , , , never or living with a partner? Living with partner [facility] How often to you hav e a drink containing alcohol? Never [facility] How hard is it for y ou to pay for the very basics like food, housing, medical care, and heating Somewhat hard [facility] Do you feel stress - tense, restless, nervous, or anxious, or unable to sleep at night because your mind is troubled all the time - these days [OSQ] To some extent [facility] (I/We) worried wheth er (my/our) food would run out before (I/we) got money to buy more. Never true [facility] Start: 05-17-2023 Tobacco Comment Current smoker, unknown frequency [facility] History of Present illness Narrative 06-04-2024 Gabriella Hackett, CLARIFYING PLANT OPERATOR-MANUFACTURING CHIEF ENGINEER - 06/04/2024 4:05 PM EDT Note Date & Type Note Facility 06-04-2024 History of Presen t illness Narrative Skin Check Location: Patient requests a skin examination from the waist up Dermatologic history: no history of skin cancer Last visit: 1 year ago Established patient Lesions: Location: chest, abdomen, and back Duration: years Quality: itchy Modifying factors: rubs on clothing Associated symptoms: rough Treatments: none All pertinent medical history, medications, and allergies were reviewed. General Exam: alert, oriented to person, place, and time, normal affect, well appearing Unaccompanied A complete skin exam was offered, pt declined. Areas not examined despite medical recommendation: From the waist down Scalp, Examined Head, Face Examined Neck Examined Chest Examined Back Examined Abdomen Examined Right arm Examined Left arm Examined Hands Examined Digits,nails: Examined Lymphatics: 1. Melanocytic nevus of trunk (2) Chest (Upper Torso, Anterior), Torso - Posterior (Back) Scattered benign appearing, regular brown to light brown melanocytic papules and macules with similar morphology Counseled regarding these benign growths. Rarely, a nevus can develop into malignant melanoma, so any changing nevi should be promptly re-evaluated. Melanoma handout provided to patient. 2. Seborrheic keratosis (4) Abdomen (Lower Torso, Anterior), Chest (Upper Torso, Anterior), Head - Anterior (Face), Torso - Posterior (Back) Stuck on verrucous, variably pigmented papules and plaques. Patient was counseled regarding these benign growths. Removal is normally not necessary, but they may be removed if they are symptomatic or for cosmetic reasons. Education handout provided to patient. 3. Capillary angioma Scattered baker-red papule(s). The patient was informed that angiomas are benign growths on the the skin. No treatment is necessary. 4. Inflamed seborrheic keratosis (8) Left Abdomen (side) - Upper, Left Breast, Left Flank, Left Lower Back, Mid Back (2), Right Flank, Right Upper Back Inflamed seborrheic keratoses: pink and brown stuck on verrucous scaly papule with surrounding erythema and bloody crust. The patient was informed that symptomatic seborrheic keratoses are benign growths that become inflamed, itchy, tender, traumatized, caught on clothing, or bleed. Symptomatic lesions can be treated with cryotherapy or curretage. Thicker lesions treated with cryotherapy may require more than one treatment. The patient was instructed to notify the office if abnormal redness or tenderness develops at the treatment site. Cryotherapy today, see procedure note. Diagnosis: Inflamed seborrheic keratosis Indication: Inflamed Consent: Verbal consent was obtained and risks were discussed, including, but not limited to risks of scarring, darker or roll finisher pigmentary changes, recurrence, incomplete removal and infection. Method: Liquid nitrogen was used to treat the lesion(s) with two 5-10 second freeze-thaw cycles Number of lesions treated: 8 Post-procedure instructions: Instructions were given orally and in writing. The office will be contacted if the lesion fails to resolve despite treatment, or if a side effect develops such as abnormal crusting, scabbing, redness or tenderness Cryotherapy, skin lesion - Left Abdomen (side) - Upper, Left Breast, Left Flank, Left Lower Back, Mid Back (2), Right Flank, Right Upper Back Next Visit: 1 year skin exam documented in this encounter [facility] Progress note 05-10-2024 Note Date & Type Note Facility 05-10-2024 Note [place] [facility] Note Reason for cardiology consult: Chest pain Chief Complaint: Chest pain HPI: Kaitlyn Ceballos is a 54 y.o. female without prior cardiac history, no history of hypertension, hyperlipidemia or diabetes mellitus. She has history of tobacco use. She has history of anxiety/depression, GERD, esophageal dilatation, osteoporosis Patient had COVID-19 infection in 2020, at that time she had severe headache for about 11 days. Since then she has not been feeling good. She had aches all over her body and joints. What worried her the most is the chest pain. She states that she feels chest heaviness all the time and sometimes it feels like squeezing particularly in the armpits location and sometimes intermittent sharp shooting pain and usually it is associated with feeling difficult to breeze. When she has the chest pain sometimes it goes around particularly to the chin and the arms. It is not triggered by exertion and it does not get worse with exertion. Chest wall hurts to palpate even the skin hurts to palpate. She denies orthopnea or paroxysmal nocturnal dyspnea or dizziness or palpitations. She feels that her legs are heavy but no swelling is obvious. She had EGD and nothing was found but esophageal dilatation was performed and that did not help with the chest pain. She had extensive neurological workup for autoimmune disease particularly MS and it came back to be negative. Finally it was felt that probably her symptoms represent fibromyalgia and she was started on gabapentin which she has been taking only in the evening only because it makes her sleepy and drowsy but no improvement. Also she has been having intermittent headache therefore she is on Maxalt as needed Patient is a smoker about 6 to 7 cigarettes a day for more than 30 years. She denies alcohol or illicit drugs Regarding family history her father had PAD and he from congestive heart failure at age 92. She does not know if he had CAD Cardiology ROS: GENERAL: Denies fever, chills, night sweats, weight loss. HEENT: Denies changes in vision, photophobia, changes in hearing, epistaxis, oral bleeding. CARDIOVASCULAR: She reports chest pain and shortness of breath as described above. She denies orthopnea/PND, lower extremity edema, palpitations, lightheadedness/dizziness. RESPIRATORY: Denies SOB, coughing, wheezing GI: Denies abdominal pain, nausea/vomiting, heartburn, melena/hematochezia. RENAL: Denies dysuria, hematuria, flank pain. MSK: Denies muscle weakness/pain, arthralgias/joint pain. NEUROLOGIC: Denies LOC, weakness, numbness, headaches. SKIN: Denies abnormal rashes or bleeding. PSYCH: Denies significant anxiety, depression, sleep disturbances. Past Medical History She has a past medical history of COVID-19 and Fibromyalgia. Surgical History She has a past surgical history that includes Hysterectomy. Social History She reports that she has been smoking cigarettes. She has a 7.50 pack-year smoking history. She has never used smokeless tobacco. She reports that she does not drink alcohol and does not use drugs. Family History Family History Problem Relation Name Age of Onset No Known Problems Mother Heart failure Father Heart disease Father Allergies Patient has no known allergies. Medications Current Outpatient Medications: cetirizine (ZyrTEC) 10 mg tablet, Take 10 mg by mouth in the morning., Disp: , Rfl: gabapentin (Neurontin) 100 mg capsule, Take 100 mg by mouth two times daily., Disp: , Rfl: rizatriptan (Maxalt) 10 mg tablet, 10 mg., Disp: , Rfl: Last Recorded Vitals Visit Vitals BP 114/79 Pulse 100 Ht 1.626 m (5' 4 ) Wt 61.2 kg (135 lb) SpO2 98% BMI 23.17 kg/m??? Smoking Status Every Day BSA 1.66 m??? Physical Examination: GENERAL: alert and oriented x3, well developed, in no acute distress. HEAD: atraumatic, normocephalic. EYES: PEPE, EOMI. NECK: trachea midline, no JVD present, no carotid bruits present. CARDIAC: S1, S2 present. RRR. No murmur, rubs, or gallops. RESPIRATORY: CTAB, no increased effort of breathing, no rales, rhonchi, or wheezing. ABDOMEN: soft, nontender, nondistended. EXTREMITIES: no lower extremity edema, peripheral pulses are 2+ bilaterally. No rash/skin discoloration present. NEURO: strength/sensation equal and symmetric in bilateral upper and lower extremities. PSYCH: appropriate mood, affect, and judgement. Labs: 08/09/2023 White blood count 9, hemoglobin 13.5, hematocrit 40.5, platelets 297 INR 0.94 Sodium 140, potassium 3.6, BUN 19, creatinine 0.72, GFR above 60, glucose 102, calcium 9.8 Total bilirubin 0.3, AST 22, ALT 37, alk phos 98, total protein 7.3, albumin 3.5 BNP 41 Last Images: EKG today showed normal sinus rhythm, heart rate 80 bpm, normal EKG EKG 08/09/2023 showed normal sinus rhythm, normal EKG Chest x-ray 08/09/2023 FINDINGS: No pneumothorax, pleural effusion or focal air (more content not included)... [facility] Evaluation note 05-26-2023 Note Date & Type Note Facility 05-26-2023 Evaluation note Encounter Date Diagnosis Assessment Notes May, Sore throat (ICD-10 - J02.9) May, Chronic frontal sinusitis (ICD-10 - J32.1) Patient has known allergic sinusitis and this is likely what she is experiencing from her recent stopping of her allergy medicine. Could be a non-specific viral URI on top of this. Either way, Flonase and Zyrtec can help with the symptoms and I recommended restarting this. If signs of bacterial infection occur she should return or call PCP. These signs were reviewed with her. [facility] Other Evaluation note 08-23-2021 Note Date & Type Note Facility 08-23-2021 Evaluation note Encounter Date Diagnosis Assessment Notes Aug, Dysphagia, unspecified type (ICD-10 - R13.10) [facility] Other Evaluation note Note Date & Type Note Facility Evaluation note [facility]: Evaluation note Note Date & Type Note Facility Evaluation note Diagnosis Visit for screening mammogram Other screening mammogram documented in this encounter [facility] Work Phone: Evaluation note Note Date & Type Note Facility Evaluation note Diagnosis Anxiety and depression (CMS/HCC)- Primary Tobacco user Tobacco use disorder BMI 23.0-23.9, adult Myalgia Unspecified myalgia and myositis Myalgia- Primary Unspecified myalgia and myositis Tobacco user Tobacco use disorder Anxiety and depression (CMS/HCC)- Primary Paresthesia of skin Myalgia Unspecified myalgia and myositis Melanocytic nevus of trunk- Primary Benign neoplasm of skin of trunk, except scrotum Seborrheic keratosis Capillary angioma Nevus, non-neoplastic Inflamed seborrheic keratosis documented in this encounter [facility] History general Narrative - Reported Note Date & Type Note Facility History general Narrative - Reported Type Surgical History hysterectomy Hospitalization History pneumonia Located [facility] [employer] Other History general Narrative - Reported Note Date & Type Note Facility History general Narrative - Reported Type Medical History [facility] Medical History HEMATURIA Surgical History hysterectomy Hospitalization History pneumonia X2 Hospitalization History [facility] [employer] Other Summary Purpose Family History No Family History Records Found Relationship Condition Age at Onset Recorded Date/T belinda Not Specified Malignant neoplasm of brain Unknown father Congestive heart failure Unknown grandparent Malignant neoplasm of cervix Unknown Relationship Condition Age at Onset Recorded Date/T belinda mother Malignant neoplasm of brain Unknown father Congestive heart failure Unknown grandparent Malignant neoplasm of cervix Unknown brother Unknown Malignant neoplasm Unknown father Unknown mother Unknown Advance Directives No Advanced Directives Records Found Advance Directive Response Recorded Date/ Time Advance Directives No August 26, 2021 5:38pm Advance Directive Response Recorded Date/ Time Advance Directives No August 26, 2021 6:38pm Reason for Referral Specialty Diagnoses / Procedures Referred By Contac t Referred To Contact Radiology Diagnoses Visit for screening mammogram Procedures ADEEL MARBELLA DIGITAL SCREEN SELF REFERRAL W OR WO CAD BILATERAL Joyce Almeida [address] [place] [address] Referral ID Status Reason Start Date Expiration Date Visits Re quested Visits Authorized [id number] Closed 12/03/2022 12/03/2023 1 1 Chief Complaint and Reason for Visit Chief Complaint r29.2 r20.2 Additional Source Comments REASON FOR VISIT (unrecogniz ed section and content) Specialty Diagnoses / Procedures Referred By Contac t Referred To Contact Radiology Diagnoses Visit for screening mammogram Procedures ADEEL MARBELLA DIGITAL SCREEN SELF REFERRAL W OR WO CAD BILATERAL Joyce Almeida [address] [place] [address] Referral ID Status Reason Start Date Expiration Date Visits Re quested Visits Authorized [id number] Closed 12/03/2022 12/03/2023 1 1 Reason Comments Skin Check Suspicious Skin Lesion INFORMATION SOURCE (unrecogn ized section and content) DATE CREATED AUTHOR 04/12/2022 [facility] DATE CREATED AUTHOR AUTHOR'S ORGANIZ ATION 12/11/2023 [facility] DATE CREATED AUTHOR AUTHOR'S ORGANIZ ATION 01/12/2024 [facility] DATE CREATED AUTHOR AUTHOR'S ORGANIZ ATION 04/05/2024 [facility] DATE CREATED AUTHOR AUTHOR'S ORGANIZ ATION 05/12/2024 [facility] DATE CREATED AUTHOR AUTHOR'S ORGANIZ ATION 06/06/2024 [facility] EPIC Care Teams (unrecognized sec tion and content) Team Status: Inactive Member Role Status Dates Jesu Ramirez MD Attending Provider Active Gemologist Relationship Specialty Start Date End Date Joyce Almeida [address] [place] [address] PCP - General Nurse Practitioner 11/24/22 Team Status: Active Member Role Status Dates Joyce Almeida Primary Care Provider Active Team Status: Inactive Member Role Status Dates Joyce Almeida Primary Care Provider Active Sta rt: April 01, 2024 End: April 01, 2024 Faina Owens APRN Attending Provider Active Start: April 01, 2024 End: April 01, 2024 Gemologist Relationship Specialty Start Date End Date Abel Lemus MD [address] [place] [phone] PCP - General Family Medicine 10/02/23 Joyce Almeida NP [address] [place] [phone] Nurse Practitioner Family Medicine 08/07/22 Joyce Almeida NP [address] [place] [phone] Nurse Practitioner Family Medicine 10/02/23 Gemologist Relationship Specialty Start Date End Date Abel Lemus MD [address] [place] [phone] PCP - General Family Medicine 10/02/23 Joyce Almeida NP [address] [place] [address] Nurse Practitioner Family Medicine 08/07/22 Joyce Almeida NP [address] [place] [address] Nurse Practitioner Family Medicine 10/02/23 Goals (unrecognized section and content) Goals may be documented in a n alternate section FOR RECORDS PERTAINING TO PATIENTS WHO ARE OR HAVE BEEN ENROLLED IN A CHEMICAL DEPENDENCY/SUBSTANCEABUSE PROGRAM, SOME INFORMATION MAY BE OMITTED. This clinical summary was aggregated from multiple sources. Caution should be exercised in using it in the provision of clinical care. This summary normalizes information from multiple sources, and as a consequence, information in this document may materially change the coding, format and clinical context of patient data. In addition, data may be omitted in some cases. CLINICAL DECISIONS SHOULD BE BASED ON THE PRIMARY CLINICAL RECORDS. [facility]. provides no warranty or guarantee of the accuracy or completeness of information in this document.
== END 2024-06-12 15:49 | disposition home or self-care (01) ==
PROVIDERS: PCP Nurse Practitioner; Visit Provider Nurse Practitioner
DX: J06.9 Acute upper respiratory infection, unspecified (principal)
CPT/HCPCS: 71046

== ENCOUNTER 2024-07-29 06:55 | Outpatient (OUT) | payer OTHER, SELFPAY ==
--- NOTE | 2024-07-29 | NM_ITS ---
Patient Name: EARL BERKOWITZ MR#: [id number] : 1970 Exam Date: 07/29/2024 Ordering Doctor: DR. ELYSSA BENÍTEZ M.D. RADIOLOGY REPORT PROCEDURE: NM CJ PERF SPECT REST STR COMPARISON: None. INDICATIONS: CHEST PAIN, UNSPECIFIED TECHNIQUE: Exam Description: Stress/Rest one day protocol gated SPECT Rest Imagin.6 mCi Tc-99m Cardiolite IV on 07/29/2024 Stress Imaging 31.0 mCi Tc-99m Cardiolite IV on 07/29/2024 Exercise Protocol: 0.4 mg Lexiscan given IV Heart Rate (bpm): Rest: 76 Max: 137 PMHR: 83 Blood Pressure: Rest: 112/64 Max: 116/70 Symptoms: Rest and peak stress ECG findings were normal and the exercise portion of the study was normal per attending physician Dr. Banuelos . For more details please see separate cardiac stress test report. FINDINGS: QUALITY OF STUDY: Excellent. PERFUSION DEFECT: None. LOCATION: N/A SIZE: N/A. SEVERITY: N/A. TYPE: N/A. WALL MOTION: Normal. LV SIZE: Normal. 46 mL. TID / TCD: None; 0.8 LVEF: Normal. Calculated EF 76%. SUMMARY: Myocardial perfusion imaging study is NORMAL. CONCLUSION: 1. Normal nuclear medicine myocardial perfusion scan. Dictated by: David Quarles M.D. on 08/01/2024 at 08:53 Approved by: David Quarles M.D. on 08/01/2024 at 08:56
--- NOTE | 2024-07-29 | PCN_ITS ---
CARDIAC STRESS TEST Requesting Physician: Procedure Date: 07/29/2024 INDICATION: Chest pain. METHODS: After risks, benefits, and alternatives were explained, written informed consent was obtained. The patient was brought to the stress lab in a resting and fasting state. She was connected to the appropriate hemodynamic and electrocardiographic monitoring. Lexiscan 0.4 mg was infused intravenously. Technetium Cardiolite was administered per protocol. There were no complications. FINDINGS: STRESS TEST INFORMATION: Resting heart rate 76 beats per minute, increasing to a maximum of 137 beats per minute. Resting blood pressure 112/64 with a maximum blood pressure of 116/70. ELECTROCARDIOGRAPHY: Rest EKG: Sinus rhythm, premature ventricular contractions, right axis deviation. During infusion and recovery: No significant ST-T wave changes noted, infrequent premature ventricular contractions seen. FINAL IMPRESSIONS: 1. No ischemic EKG changes seen on Lexiscan pharmacological stress test. 2. Nuclear images are to read, interpreted, and reported in a separate dictation. [facility]
--- OUTSIDE RECORDS SUMMARY | 2024-07-29 06:58 | XMS_ITS | CCD ---
Author Organization [facility] Inform ion [facility] Care Team Providers Care Electrical Engineering Professor Name Role Phone Zak Estrada Unavailable DR EVELIA MURRAY Admitting Unavailable TERRI, DR EVELIA Traylor Attending Unavailable MISC, DR RAMSEY Primary Care Unavailable TERRI, DR EVELIA Traylor Consulting Unavailable HUGH SHEARER Consulting Unavailable AICHHOLZ, BOBBIN WASHER JOYCE Admitting Unavailable AICHHOLZ, BOBBIN WASHER JOYCE Attending Unavailable MISC, DR RAMSEY Primary Care Unavailable AICHHOLZ, BOBBIN WASHER JOYCE Consulting Unavailable MD Jesu Ramirez Attending Provider Juan Pablo Joyce J. Primary Care Provider [phone] Harpal Muñoz Unavailable AICHCHARLIE, JOYCE J. Primary Care Unavailable AICHHOLZ, JOYCE J. Referring Unavailable AICHHOLZ, JOYCE J. Referring Unavailable AICHHOLZ, JOYCE J. Primary Care Unavailable AICHHOLZ, JOYCE J Primary Care Unavailable Aichholz, Joyce J Primary Care Provider NEETA Owens Attending Provider Faina Owens Attending Unavailable Faina Owens Admitting Unavailable Aichholz, Joyce J Primary Care Unavailable ELYSSA BENÍTEZ Attending Unavailable Aichholz CHIEF ENGINEER [employer]RILLING [employer] RECOVERY, Joyce Unavailable Abel Lemus MD Primary Care Provider Aichholyue CHIEF ENGINEER [employer]OV[employer], Joyce Unavailable AICMARGY JOYCE Attending Unavailable URBANOHOLZ JOYCE Attending Unavailable JUAN PABLO JOYCE Attending Unavailable FAINA OWENS Attending Unavailable AICHHOLYue, JOYCE Attending Unavailable MOO PIERSON Attending Unavailable GABRIELLA HACKETT Attending Unavailable JOYCE ALMEIDA Attending Unavailable JOYCE ALMEIDA Attending Unavailable Allergies Allergy Classification Reported Allergen(s) Allergy Type Date of Onset Reaction(s) Facility (14 sources) Nitrofurantoin Drug Allergy 4 Itching [facility] Healthcare (14 sources) Other Allergy to substance 3 Unknown [facility] Work Phone: Medications Current Medications Medication Drug Class(es) Dates Sig (Normalized) Sig (Original) cetirizine hydrochloride 10 mg oral tablet (16 sources) Histamine-1 Receptor Antagonist Start: 4 End: 4 take 1 tablet by mouth once daily cetirizine (ZyrTEC) 10 MG tablet Indications: Gastroesophageal reflux disease, unspecified whether esophagitis present Take 1 tablet (10 mg) by mouth Daily 30 tablet 3 02/14/2024 Active dextromethorphan hydrobromide 1.5 mg/ml / pyrilamine maleate 1.5 mg/ml oral solution (1 source) Uncompetitive U-lcsqhp-L-asparta te Receptor Antagonist, Sigma-1 Agonist Start: 4 take 1 mL by mouth every eight hours Pyrilamine-Dextrometh orphan (Tingley Dm) 7.5-7.5 mg/5 mL liquid Active 10 ML PO Every 8 hours 150 5 November 11, 2023 12:00am FLUoxetine 10 mg oral capsule (1 source) Serotonin Reuptake Inhibitor Start: 4 take 10 mg by mouth once daily Fluoxetine Active 10 MG PO Daily November 11, 2023 12:00am gabapentin 100 mg oral capsule (9 sources) Anti-epileptic Agent take 1 capsule by [...] 6 days rizatriptan 10 mg oral tablet (13 sources) Serotonin-1b and Serotonin-1d Receptor Agonist Start: [...] Drug Class(es) Dates Sig (Normalized) Sig (Original) cyclobenzaprine hydrochloride 10 mg oral tablet (10 sources) Muscle Relaxant Start: 01-11-2024 End: 06-12-2024 take 1 tablet by mouth twice daily as needed cyclobenzaprine (Flexeril) 10 MG tablet Take 10 mg by mouth 2 (two) times a day as needed 01/11/2024 06/12/2024 Discontinued (Therapy completed) omeprazole 20 mg delayed release oral capsule (2 sources) Proton Pump Inhibitor Start: 09-03-2021 End: 11-11-2023 take 20 mg by mouth once daily Omeprazole Discontinued 20 MG PO Daily September 03, 2021 1:00am November 11, 2023 1:20pm Problems Active Problems Problem Classification Problem Date Documented Da te Episodic/Chronic Anxiety disorders (17 sources) Anxiety; Translations: [Anxiety disorder, unspecified] Onset: 4 08-17-2023 Chronic Disorders of lipid metabolism (8 sources) Pure hypercholesterolemia, unspecified; Translations: [Pure hypercholesterolemia] Onset: 4 Chronic Esophageal disorders (18 sources) Gastroesophageal reflux disease; Translations: [Gastro-esophageal reflux disease without esophagitis] Onset: 4 09-03-2021 Chronic Headache; including migraine (20 sources) Tension-type headache; Translations: [Tension-type headache, unspecified, not intractable] Onset: 4 01-05-2024 Chronic Nonspecific chest pain (20 sources) Chest pain, unspecified; Translations: [Chest pain] Onset: 4 Resolved: 4 Episodic Other and unspecified benign neoplasm [...] in upper limb Onset: 4 Episodic Other connective tissue disease (10 sources) Fibromyalgia; Translations: [Fibromyalgia] Onset: 4 06-12-2024 Episodic Other gastrointestinal disorders (6 sources) Dysphagia; Translations: [Dysphagia, unspecified] 09-03-2021 Episodic Other lower respiratory disease (2 sources) Shortness of breath; Translations: [Shortness of breath] Onset: 4 Episodic Other lower respiratory disease (6 sources) Dyspnea; Translations: [Shortness of breath] Onset: 4 06-12-2024 Episodic Other nutritional; endocrine; and metabolic disorders (4 sources) Abnormal weight gain; Translations: [ABNORMAL WEIGHT GAIN] Onset: 2 Episodic Other screening for suspected conditions (not mental disorders or infectious disease) (6 sources) Patient encounter status; Translations: [Encounter for screening mammogram for malignant neoplasm of breast] Onset: 4 Episodic Other skin disorders (2 sources) Seborrheic keratosis; Translations: [Other seborrheic keratosis] 06-04-2024 Episodic Other skin disorders (2 sources) Inflamed seborrheic keratosis; Translations: [Inflamed seborrheic keratosis] 06-04-2024 Episodic Other upper respiratory infections (2 sources) Chronic frontal sinusitis; Translations: [Chronic frontal sinusitis] Chronic Residual codes; unclassified (16 sources) Tobacco user; Translations: [Tobacco use] Onset: 4 08-17-2023 Episodic Unclassified (1 source) Burning Arm Pain Onset: 4 Past or Other Problems Problem Classification Problem Date Documented Da te Episodic/Chronic Nonmalignant breast conditions (15 sources) Mastodynia; Translations: [Mastodynia of bilateral breasts] Onset: 11-14-2023 11-14-2023 Episodic Other circulatory disease (4 sources) Other specified symptoms and signs involving the circulatory and respiratory systems; Translations: [OTH SPEC SX SIGNS INVLV CIRC RS] Onset: 08-18-2021 Episodic Other connective tissue disease (16 sources) Muscle pain; Translations: [Myalgia, unspecified site] Onset: 08-17-2023 08-17-2023 Episodic Other gastrointestinal disorders (1 source) Dysphagia, unspecified Onset: 08-23-2021 Resolved: 08-23-2021 Episodic Other nervous system disorders (16 sources) Paresthesia; Translations: [Paresthesia of skin] Onset: 01-05-2024 01-05-2024 Episodic Other nervous system disorders (14 sources) Anesthesia of skin; Translations: [Anesthesia of skin] Onset: 01-08-2024 01-08-2024 Episodic Other nervous system disorders (16 sources) Hyperreflexia; Translations: [Abnormal reflex] Onset: 01-08-2024 01-08-2024 Episodic Other upper respiratory infections (20 sources) Acute pharyngitis, unspecified; Translations: [Pharyngitis] Onset: 08-19-2021 Resolved: 07-08-2024 Episodic Residual codes; unclassified (16 sources) Pain; Translations: [Pain, unspecified] Onset: 01-08-2024 01-08-2024 Episodic Residual codes; unclassified (14 sources) Body mass index 20-24 - normal; Translations: [Body mass index (BMI) 23.0-23.9, adult] Onset: 08-17-2023 Resolved: 08-17-2023 08-17-2023 Episodic Results Test Name Value Interpretation Reference Range Facility No Panel Informationon 06-04 [facility] Office Visiton 05-10-2024 Follow-up visit [id number] Kaitlyn Ceballos 1970 F Date Provider Department Center 05/10/2024 [id number] DELGADO Family History Problem Relation Age of Onset No Known Problems Mother Heart failure Father Heart disease Father Family Status - Relation Status Age at Mother Father Level of Service:68526 DE OFFICE/OUTPATIENT NEW MODERATE MDM 45 MINUTES Reason for Visit and Comments: New Patient [632] - Pt is here for chest pain. Normal [facility] MR head/brain wo/w conon 08- 26-2024 MR head/brain wo/w con [facility] [place] [address] [place] [address] MRI Report Signed Patient: Kaitlyn Ceballos MR#: [id number] : 1970 Acct:[id number] Age/Sex: 54 / F ADM Date: 04/01/24 Loc: MR Room: Type: [facility] Attending Dr: Faina Owens APRN [...] Evelia Gimenez M.D.04/01/2024 4:18 PM Dictation Location: [place] [address] Transcribed By: [facility] 04/01/24 161 Dictated By: Evelia Gimenez II, MD 04/01/241614 Signed By: 04/01/24 161 Normal [facility] DIGITAL DIAGNOSTIC BILATERALon 12-08-2023 [facility] DIGITAL DIAGNOSTIC BILATERAL EXAMINATION: DIAGNOSTIC [...] to the patient regarding the results. [employer] recommends annual mammograms for women 40 years and older. Interpreted by: Sangeetha Lynn MD Signed by: Sangeetha Lynn MD 12/08/23 Final result Normal [facility] Quick Strepon 05-26-2023 S. pyogenes Org specific cx Ql (Throat) Negative [facility] Other Quick Strep [facility] Other [facility] DIGITAL SCREEN SELF REFERRAL W OR WO CAD BILATERALon 12-05-2022 No mammographic findings of malignancy. BI-RADS 1 BIRADS - CATEGORY 1 Negative, no evidence of malignancy. Normal interval follow-up is recommended in 12 months. OVERALL ASSESSMENT - NEGATIVE A letter of notification will be sent to the patient regarding the results. [employer] recommends annual mammograms for women 40 years and older. [facility] RIS CONSOLIDATED EXAMINATION: SCREENING DIGITAL BILATERAL MAMMOGRAM WITH [...] no suspicious mass, architectural distortion, or calcification. [facility] RIS CONSOLIDATED [facility] DIGITAL SCREEN SELF REFERRAL W OR WO CAD BILATERALOrdered By: Archana Montero on 12-05-2022 [employer] Phone: [facility] DIGITAL SCREEN SELF REFERRAL W OR WO CAD BILATERALon 12-03-2022 Radiology Study observation (narrative) [facility] CBC AUTO DIFFon 04-09-2022 BASO # 0.1 103/ul Normal 0.0-0.1 [facility] Comment on above: Performed By: #### C BC #### [facility] [address] [place] [address] Dr. Kenny An Basophils/100 WBC (Bld) 0.9 % Normal 0.2-2.0 [facility] Comment on above: Performed By: #### C BC #### [facility] [address] [place] [address] Dr. Kenny An EO # 0.1 103/ul Normal 0.0-0.7 [facility] Comment on above: Performed By: #### C BC #### [facility] [address] [place] [address] Dr. Kenny An Eosinophils/100 WBC (Bld) 2.1 % Normal 0.9-7.0 [facility] Comment on above: Performed By: #### C BC #### [facility] [address] [place] [address] Dr. Kenny An Erythrocyte distribution width (RBC) [Ratio] 13.2 % Normal 11.0-15.0 [facility] Comment on above: Performed By: #### C BC #### [facility] [address] [place] [address] Dr. Kenny An Hematocrit (Bld) [Volume fraction] 38.8 % Normal 36.0-48.0 [facility] Comment on above: Performed By: #### C BC #### [facility] [address] [place] [address] Dr. Kenny An Hemoglobin (Bld) [Mass/Vol] 13.1 g/dL Normal 12.0-16.0 [facility] Comment on above: Performed By: #### C BC #### [facility] [address] [place] [address] Dr. Kenny An IG # 0.01 10e3/ul Normal 0.00-0.03 [facility] Comment on above: Performed By: #### C BC #### [facility] [address] [place] [address] Dr. Kenny An IG % 0.2 % Normal 0.0-0.5 [facility] Comment on above: Performed By: #### C BC #### [facility] [address] [place] [address] Dr. Kenny An LYMPH # 1.7 103/ul Normal 1.2-3.8 [facility] Comment on above: Performed By: #### C BC #### [facility] [address] [place] [address] Dr. Kenny An Lymphocytes/100 WBC (Bld) 32.2 % Normal 20.5-60.0 [facility] Comment on above: Performed By: #### C BC #### [facility] [address] [place] [address] Dr. Kenny An MANUAL DIFF REQ NO Normal [facility] Comment on above: Performed By: #### C BC #### [facility] [address] [place] [address] Dr. Kenny An MCH (RBC) [Entitic mass] 30.5 pg Normal 26.7-34.0 [facility] Comment on above: Performed By: #### C BC #### [facility] [address] [place] [address] Dr. Kenny An MCHC (RBC) [Mass/Vol] 33.8 g/dL Normal 29.9-35.2 [facility] Comment on above: Performed By: #### C BC #### [facility] [address] [place] [address] Dr. Kenny An MCV (RBC) [Entitic vol] 90.4 fL Normal 81.0-99.0 [facility] Comment on above: Performed By: #### C BC #### [facility] [address] [place] [address] Dr. Kenny An MONO # 0.6 103/ul Normal 0.3-0.8 [facility] Comment on above: Performed By: #### C BC #### [facility] [address] [place] [address] Dr. Kenny An Monocytes/100 WBC (Bld) 11.0 % Normal 1.7-12.0 [facility] Comment on above: Performed By: #### C BC #### [facility] [address] [place] [address] Dr. Kenny An NEUT # 2.8 103/ul Normal 1.4-6.5 [facility] Comment on above: Performed By: #### C BC #### [facility] [address] [place] [address] Dr. Kenny An Neutrophils/100 WBC (Bld) 53.6 % Normal 43.0-75.0 [facility] Comment on above: Performed By: #### C BC #### [facility] [address] [place] [address] Dr. Kenny An Platelet mean volume (Bld) [Entitic vol] 9.8 fL Normal 9.5-13.5 [facility] Comment on above: Performed By: #### C BC #### [facility] [address] [place] [address] Dr. Kenny An PLT 254 103/ul Normal 150-450 [facility] Comment on above: Performed By: #### C BC #### [facility] [address] [place] [address] Dr. Kenny An RBC 4.29 106/ul Normal 4.20-5.40 [facility] Comment on above: Performed By: #### C BC #### [facility] [address] [place] [address] [address] Kenny An WBC 5.3 103/ul Normal 4.0-11.0 [facility] Comment on above: Performed By: #### C BC #### [facility] [address] [place] [address] [address] Kenny An FREE T4on 04-09-2022 Free T4 [Mass/Vol] 1.13 ng/dL Normal 0.76-1.46 [facility] Comment on above: Performed By: #### F T4 #### [facility] [address] [place] [address] [address] Kenny An LIPID PROFILEon 04-09-2022 CHOL-HDL RATIO NORM SEE BELOW Normal [facility] Comment on above: Result Comment: 3.3 - 4.4 LOW RISK 4.4 - 7.1 AVERAGE RISK 7.1 - 11.0 MODERATE RISK >11.0 HIGH RISK Performed By: #### C MP, TSH, LIPID #### [facility] [address] [place] [address] Dr. Kenny An Cholesterol [Mass/Vol] 167 mg/dL Normal <=200 [facility] Comment on above: Performed By: #### C MP, TSH, LIPID #### [facility] [address] [place] [address] [address] Kenny An Cholesterol in HDL [Mass/Vol] 61 mg/dL Critically high 40-60 [facility] Comment on above: Performed By: #### C MP, TSH, LIPID #### [facility] [address] [place] [address] [address] Kenny An Cholesterol in LDL [Mass/Vol] 98.4 mg/dL Normal [facility] Comment on above: Performed By: #### C MP, TSH, LIPID #### [facility] [address] [place] [address] [address] Kenny An Cholesterol.total/Cho lesterol in HDL [Mass ratio] 2.7 {ratio} Normal [facility] Comment on above: Performed By: #### C MP, TSH, LIPID #### [facility] [address] [place] [address] [address] Kenny An HDL NORMAL > or = 60 mg/dl - LOW CARDIOVASCULAR RISK <40 mg/dl - HIGH CARDIOVASCULAR RISK Normal [facility] Comment on above: Performed By: #### C MP, TSH, LIPID #### [facility] [address] [place] [address] [address] Kenny An LDL CALC NORMAL SEE BELOW Normal [facility] Comment on above: Result Comment: <100 mg/dl OPTIMAL 100 - 129 mg/dl NEAR OR ABOVE OPTIMAL 130 - 159 mg/dl BORDERLINE HIGH 160 - 189 mg/dl HIGH >190 mg/dl VERY HIGH Performed By: #### C MP, TSH, LIPID #### [facility] [address] [place] [address] [address] Kenny An Triglyceride [Mass/Vol] 38 mg/dL Normal <=150 [facility] Comment on above: Performed By: #### C MP, TSH, LIPID #### [facility] [address] [place] [address] [address] Kenny An VLDL CALC 7.6 mg/dL Normal [facility] Comment on above: Performed By: #### C MP, TSH, LIPID #### [facility] [address] [place] [address] Dr. Kenny An PROF 14(COMP METB)on 022 Albumin [Mass/Vol] 3.6 g/dL Normal 3.4-5.0 [facility] Comment on above: Performed By: #### C MP, TSH, LIPID #### [facility] [address] [place] [address] Dr. Kenny An Albumin/Globulin [Mass ratio] 1.1 {ratio} Normal [facility] Comment on above: Performed By: #### C MP, TSH, LIPID #### [facility] [address] [place] [address] Dr. Kenny An ALP [Catalytic activity/Vol] 85 U/L Normal 46-116 [facility] Comment on above: Performed By: #### C MP, TSH, LIPID #### [facility] [address] [place] [address] [address] Kenny An ALT [Catalytic activity/Vol] 31 U/L Normal 14-59 [facility] Comment on above: Performed By: #### C MP, TSH, LIPID #### [facility] [address] [place] [address] Dr. Kenny An Anion gap [Moles/Vol] 9.1 mmol/L Normal [facility] Comment on above: Performed By: #### C MP, TSH, LIPID #### [facility] [address] [place] [address] Dr. Kenny An AST [Catalytic activity/Vol] 21 U/L Normal 15-37 [facility] Comment on above: Performed By: #### C MP, TSH, LIPID #### [facility] [address] [place] [address] Dr. Kenny An Bilirubin [Mass/Vol] 0.6 mg/dL Normal 0.2-1.0 [facility] Comment on above: Performed By: #### C MP, TSH, LIPID #### [facility] [address] [place] [address] Dr. Kenny An Calcium [Mass/Vol] 9.2 mg/dL Normal 8.5-10.1 [facility] Comment on above: Performed By: #### C MP, TSH, LIPID #### [facility] [address] [place] [address] Dr. Kenny An Chloride [Moles/Vol] 104 mmol/L Normal 98-107 [facility] Comment on above: Performed By: #### C MP, TSH, LIPID #### [facility] [address] [place] [address] Dr. Kenny An CO2 [Moles/Vol] 30.7 mmol/L Normal 21.0-32.0 [facility] Comment on above: Performed By: #### C MP, TSH, LIPID #### [facility] [address] [place] [address] Dr. Kenny An Creatinine [Mass/Vol] 0.72 mg/dL Normal 0.55-1.02 [facility] Comment on above: Performed By: #### C MP, TSH, LIPID #### [facility] [address] [place] [address] [address] Kenny An EGFR-AF JAPANESE >60 Normal >=60 [facility] Comment on above: Performed By: #### C MP, TSH, LIPID #### [facility] [address] [place] [address] [address] Kenny An EGFR-NON AF JAPANESE >60 Normal >=60 [facility] Comment on above: Performed By: #### C MP, TSH, LIPID #### [facility] [address] [place] [address] [address] Kenny An Globulin (S) [Mass/Vol] 3.3 g/dL Normal [facility] Comment on above: Performed By: #### C MP, TSH, LIPID #### [facility] [address] [place] [address] [address] Kenny An Glucose [Mass/Vol] 91 mg/dL Normal 74-106 [facility] Comment on above: Performed By: #### C MP, TSH, LIPID #### [facility] [address] [place] [address] [address] Kenny An Potassium [Moles/Vol] 3.8 mmol/L Normal 3.5-5.1 [facility] Comment on above: Performed By: #### C MP, TSH, LIPID #### [facility] [address] [place] [address] [address] Kenny An Protein [Mass/Vol] 6.9 g/dL Normal 6.4-8.2 [facility] Comment on above: Performed By: #### C MP, TSH, LIPID #### [facility] [address] [place] [address] [address] Kenny An Sodium [Moles/Vol] 140 mmol/L Normal 136-145 [facility] Comment on above: Performed By: #### C MP, TSH, LIPID #### [facility] [address] [place] [address] [address] Kenny An Urea nitrogen [Mass/Vol] 13.0 mg/dL Normal 7.0-18.0 [facility] Comment on above: Performed By: #### C MP, TSH, LIPID #### [facility] [address] [place], [place] [address] Dr. Kenny An Urea nitrogen/Creatinine [Mass ratio] 18.1 mg/mg Normal [facility] Comment on above: Performed By: #### C MP, TSH, LIPID #### [facility] [address] [place], [place] [address] Dr. Kenny An TSHon 04-09-2022 TSH 0.972 uIU/mL Normal 0.358-3.740 [facility] Comment on above: Performed By: #### C MP, TSH, LIPID #### [facility] [address] [place], [place] [address] Dr. Kenny An XR NECK SOFT TISSUEon [...] by: HUGH SHEARER Date: 2021-08-18 20:20 Normal [facility] Vital Signs Date Time Vital Sign Value Performing Clinician Facility 07-08-2024 16:33-0500 Body height 162.6 cm Joyce Almeida [employer]IE[employer] Work Phone: [facility] 07-08-2024 16:33-0500 Body mass index (BMI) [Ratio] 23.24 kg/m2 Joyce Almeida [employer]IE[employer] Work Phone: [facility] 07-08-2024 16:33-0500 Body temperature 98.1 [degF] Joyce Almeida CHIEF [employer] Work Phone: [facility] 07-08-2024 16:33-0500 Body weight 61.42 kg Joyce Almeida CHIEF [employer] Work Phone: [facility] 07-08-2024 16:33-0500 Diastolic blood pressure 78 mm[Hg] Joyce Almeida CHIEF [employer] Work Phone: [facility] 07-08-2024 16:33-0500 Heart rate 97 /min Joyce Aichholz CHIEF [employer] Work Phone: [facility] 07-08-2024 16:33-0500 Respiratory rate 18 /min Joyce Aichholz [employer]IE[employer] Work Phone: [facility] 07-08-2024 16:33-0500 SaO2% (BldA) [Mass fraction] 97 % Joyce Aichholz [employer]IE[employer] Work Phone: [facility] 07-08-2024 16:33-0500 Systolic blood pressure 120 mm[Hg] Joyce Aichholz [employer]IEF [employer] Work Phone: [facility] 06-12-2024 14:46-0500 Body height 162.6 cm Joyce Aichholz [employer]IE[employer] Work Phone: [facility] 06-12-2024 14:46-0500 Body mass index (BMI) [Ratio] 23.04 kg/m2 Joyce Aichholz [employer]IE[employer] Work Phone: [facility] 06-12-2024 14:46-0500 Body temperature 98.8 [degF] Joyce Aichholz CHIEF [employer] Work Phone: [facility] 06-12-2024 14:46-0500 Body weight 60.87 kg Joyce Aichholz [employer]IE[employer] Work Phone: [facility] 06-12-2024 14:46-0500 Diastolic blood pressure 60 mm[Hg] Joyce Aichholz CHIEF ENGINEER DRILLING AND RECOVERY Work Phone: [facility] 06-12-2024 14:46-0500 Heart rate 90 /min Joyce Aichholz CHIEF ENGINEER [employer]LLING [employer] RECOVERY Work Phone: [facility] 06-12-2024 14:46-0500 Respiratory rate 19 /min Joyce Aichholz CHIEF ENGINEER [employer]LLING [employer] RECOVERY Work Phone: [facility] 06-12-2024 14:46-0500 SaO2% (BldA) [Mass fraction] 98 % Joyce Aichholz CHIEF ENGINEER [employer]RILLING [employer] RECOVERY Work Phone: [facility] 06-12-2024 14:46-0500 Systolic blood pressure 110 mm[Hg] Joyce Serratomargy CHIEF ENGINEER [employer]RILLING [employer] RECOVERY Work Phone: [facility] 04-02-2024 17:41-0400 Body height 162.6 cm Moo Agueda DO Work Phone: [facility] 04-02-2024 17:41-0400 Body mass index (BMI) [Ratio] 23.86 kg/m2 Moo Agueda DO Work Phone: [facility] 04-02-2024 17:41-0400 Body weight 63.05 kg Moo Agueda DO Work Phone: [facility] 04-02-2024 17:41-0400 Diastolic blood pressure 74 mm[Hg] Moo Agueda DO Work Phone: [facility] 04-02-2024 17:41-0400 Heart rate 72 /min Moo Agueda DO Work Phone: [facility] 04-02-2024 17:41-0400 SaO2% (BldA) [Mass fraction] 99 % Moo Agueda DO Work Phone: [facility] 04-02-2024 17:41-0400 Systolic blood pressure 108 mm[Hg] Moo Agueda DO Work Phone: [facility] 04-01-2024 13:34-0400 Body height 162.56 cm Joyce Juan Pablo Work Phone: [facility] 04-01-2024 13:34-0400 Body weight 61.23 kg Joyce Juan Pablo Work Phone: [facility] 05-26-2023 14:50-0400 Body height 160.02 cm Harpal Muñoz Other [employer] Other 05-26-2023 14:50-0400 Body mass index (BMI) [Ratio] 23.88 kg/m2 Harpal Muñoz Other [facility] Other 05-26-2023 14:50-0400 Body temperature 96.6 [degF] Harpal Wanda Other [facility] Other 05-26-2023 14:50-0400 Body weight 61.15 kg Harpal Wanda Other [facility] Other 05-26-2023 14:50-0400 Diastolic blood pressure 67 mm[Hg] Harpal Wanda Other [facility] Other 05-26-2023 14:50-0400 Respiratory rate 18 /min Harpal Wanda Other [facility] Other 05-26-2023 14:50-0400 SaO2% (BldA) [Mass fraction] 98 % Harpal Wanda Other [facility] Other 05-26-2023 14:50-0400 Systolic blood pressure 114 mm[Hg] Harpal Wanda Other [employer] Other Encounters Encounter Date Encounter Type Care Provider Facility Start: 07-08-2024 End: 07-08-2024 Office outpatient visit 15 minutes Joyce Almeida CHIEF ENGINEER DRILLING [employer] RECOVERY Work Phone: [facility] Comment on above: Fibromyalgia (Primar y Dx); Tobacco user; Anxiety and depression (CMS/HCC); Colon cancer screening Start: 07-08-2024 End: 07-08-2024 ambulatory JOYCE ALMEIDA Not Available Start: 07-08-2024 End: 07-08-2024 Bamboo flowsheet Joyce Almeida CHIEF ENGINEER [employer]RILLING [employer] RECOVERY Work Phone: [facility] Start: 07-08-2024 End: 07-08-2024 Bamboo flowsheet Joyce Almeida CHIEF ENGINEER [employer]RILLING [employer] RECOVERY Work Phone: [facility] Start: 06-14-2024 End: 06-14-2024 Refill Joyce Juan Pablo CHIEF ENGINEER [employer]RILLING [employer] RECOVERY Work Phone: [facility] Comment on above: Gastroesophageal ref lux disease, unspecified whether esophagitis present Start: 06-12-2024 End: 06-12-2024 Office outpatient visit 15 minutes Joyce Juan Pablo CHIEF ENGINEER [employer]LLING [employer] RECOVERY Work Phone: [facility] Comment on above: URI, acute (Primary Dx); Fibromyalgia Start: 06-12-2024 End: 06-12-2024 ambulatory JOYCE ALMEIDA Not Available Start: 06-12-2024 End: 06-12-2024 Bamboo flowsheet Joyce Juan Pablo CHIEF ENGINEER [employer]LLING [employer] RECOVERY Work Phone: [facility] Start: 06-12-2024 End: 06-12-2024 Bamboo flowsheet Joyce Rojelioluis miguelcharlie CHIEF ENGINEER [employer]RILLING AND RECOVERY Work Phone: [facility] Start: 06-04-2024 End: 06-04-2024 Office outpatient visit 15 minutes Gabriella A Felter DIGITAL ASSOCIATE MEDIA DIRECTOR-BOBBIN WASHER Work Phone: [facility] Comment on above: Melanocytic nevus of trunk (Primary Dx); Seborrheic keratosis; Capillary angioma; Inflamed seborrheic keratosis Start: 06-04-2024 End: 06-04-2024 ambulatory GABRIELLA A FELTER Not Available Start: 06-04-2024 End: 06-04-2024 Bamboo flowsheet Gabriella A Felter DIGITAL ASSOCIATE MEDIA DIRECTOR-BOBBIN WASHER Work Phone: [facility] Start: 06-04-2024 End: 06-04-2024 Bamboo flowsheet Gabriella A Felter DIGITAL ASSOCIATE MEDIA DIRECTOR-BOBBIN WASHER Work Phone: [facility] Start: 05-10-2024 End: 05-10-[address] [facility] Start: 05-01-2024 End: 05-01-2024 Orders Only Joyce Almeida CHIEF ENGINEER DRILLING AND RECOVERY Work Phone: [facility] Comment on above: Other chest pain (Pr imary Dx) Start: 04-02-2024 End: 04-02-2024 Office outpatient visit 25 minutes [facility]oo [facility]erson [facility] Comment on above: Paresthesia of skin (Primary Dx); Myalgia; Pain; Migraine without aura and without status migrainosus, not intractable (CMS/HCC); Tension-type headache, not intractable, unspecified chronicity pattern; Hyperreflexia Start: 04-02-2024 End: 04-02-2024 ambulatory MOO PIERSON Not Available Start: 04-02-2024 End: 04-02-2024 Bamboo flowsheet Moo Pierson DO Work Phone: [facility] Start: 04-02-2024 End: 04-02-2024 Bamboo flowsheet Moo Pierson DO Work Phone: [facility] [employer] [facility] Start: 04-01-2024 End: 04-01-2024 Patient encounter procedure Joyce Almeida Work Phone: [facility] [place] Work Phone: Start: 04-01-2024 End: 04-01-2024 ambulatory Joyce Almeida Work Phone: [facility] Work Phone: Start: 03-11-2024 End: 03-11-2024 ambulatory JOYCE ALMEIDA Not Available Start: 01-11-2024 End: 01-11-2024 Emergency department patient visit JOYCE ALMEIDA [facility] Start: 01-08-2024 End: 01-08-2024 ambulatory FAINA OWENS Not Available Start: 12-08-2023 End: 12-11-2023 ambulatory JOYCE ALMEIDA [facility] Start: 10-05-2023 End: 10-05-2023 ambulatory JOYCE ALMEIDA Not Available Start: 10-02-2023 End: 10-02-2023 ambulatory JOYCE ALMEIDA Not Available Start: 08-17-2023 End: 08-17-2023 ambulatory JOYCE ALMEIDA Not Available Start: 05-26-2023 End: 05-26-2023 ambulatory Harpal Muñoz Other [employer] Other Start: 05-26-2023 Office outpatient vi sit 15 minutes Harpal Muñoz [facility] Start: 12-03-2022 End: 12-05-2022 Subsequent hospital visit by physician Brandyn Elizabeth Rm 1 [facility] Comment on above: Visit for screening mammogram Start: 07-19-2022 End: 07-19-2022 ambulatory MD Jesu Ramirez Work Phone: [facility] Work Phone: Start: 07-19-2022 End: 07-19-2022 Departed Referred MD Jesu Ramirez Work Phone: [facility] [place] Start: 04-09-2022 End: 04-10-2022 ambulatory BOBBIN WASHER JOYCE ALMEIDA Facility:[facility] Start: 08-23-2021 End: 08-23-2021 ambulatory Zak Estrada Other [employer] Other Start: 08-23-2021 Telephone encounter Zak Estrada [facility] [employer] Start: 08-18-2021 End: 08-18-[address] EVELIA MURRAY Facility:[facility] Procedures Date Procedure Procedure Detail Performing Clinician Start: 06-04-2024 CRYOTHERAPY SKIN LESION Gabriella Hackett DIGITAL ASSOCIATE MEDIA DIRECTOR-BOBBIN WASHER Work Phone: Start: 04-01-2024 MRI of head Joyce Rogel sandritaz Work Phone: Start: 12-11-2023 Mammography Moo rider DO Work Phone: Start: 12-03-2022 Screening mammograph y bi 2-view breast inc cad Joyce Almeida Work Phone: Start: 08-07-2002 Colonoscopy Moo rider DO Work Phone: Plan of Treatment Date Care Activity Detail Author Start: 06-09-2025 End: 06-09-2025 Patient encounter procedure 06/09/2025 4:05 PM EST Office Visit [facility] [address] [place] [address] Gabriella Hackett, DIGITAL ASSOCIATE MEDIA DIRECTOR-BOBBIN WASHER [address] [place] [address] [facility] Start: 12-10-2024 Screening for malign ant neoplasm of breast Mammogram [facility] Start: 12-03-2024 Screening for malign ant neoplasm of breast Breast cancer screen [facility] Start: 07-29-2024 End: 07-29-2024 Patient encounter procedure 07/29/2024 4:20 PM EST Office Visit [facility] [address] [place] [address] Faina Owens NP [address] [place], [place] [facility] Start: 07-08-2024 End: 07-08-2024 Patient encounter procedure [facility] Comment on above: Fibromyalgia (Primar y Dx); Tobacco user; Anxiety and depression (CMS/HCC); Colon cancer screening Start: 07-08-2024 End: 07-08-2025 Noninvasive colorectal cancer DNA and occult blood screening [Presence] in Stool Cologuard colon cancer screening Lab Routine Colon cancer screening Expected: 07/08/2024 (Approximate), Expires: 07/08/2025 [facility] Work Phone: Comment on above: Expected: 07/08/2024 (Approximate), Expires: 07/08/2025 Start: 06-25-2024 End: 06-25-2024 Patient encounter procedure 06/25/2024 4:20 PM EST Office Visit [facility] [address] [place] [address] Faina Owens NP [facility] [facility] [place] MD [facility] [address] Start: 06-12-2024 End: 06-12-2024 Patient encounter procedure 06/12/2024 2:40 PM EST Office Visit [facility] [address] [place] [id number] Joyce Almeida NP [address] [place] [address] Arrived [facility] Comment on above: Arrived Start: 06-12-2024 End: 06-12-2025 XR Chest 2 Views XR chest 2 views Imaging STAT URI, acute Expected: 06/12/2024 (Approximate), Expires: 06/12/2025 [facility] Work Phone: Comment on above: Expected: 06/12/2024 (Approximate), Expires: 06/12/2025 Start: 06-04-2024 End: 06-04-2024 Patient encounter procedure [facility] Comment on above: Arrived Start: 04-02-2024 End: 04-02-2024 Patient encounter procedure 04/02/2024 5:45 PM EDT Office Visit [facility] [address] [facility] [place] [id number] Moo Pierson DO [address] [place], [place] [id number] [facility] Comment on above: Arrived Start: 03-07-2023 Influenza vaccination Flu vacc ine (Season Ended) [facility] [employer] [facility] Start: 01-16-2018 Shingles vaccine (1 of 2) Shingles vaccine (1 of 2) [facility] Start: 01-16-2013 Screening for malign ant neoplasm of colon [facility] Start: 08-07-2012 Screening for malign ant neoplasm of colon [facility] Start: 2008 Lipid panel Lipids [facility] Start: 01-16-1998 Screening for malign ant neoplasm of cervix [facility] Start: 01-16-1989 Screening for malign ant neoplasm of cervix Pap smear [facility] Start: 01-16-1987 DTaP/Tdap/Td vaccine (1 - Tdap) DTaP/Tdap/Td vaccine (1 - Tdap) [facility] Start: 01-16-1986 Hepatitis C screening Hepatitis C sc reen [facility] Start: 01-16-1983 HIV screening HIV screen [facility] Start: 1980 Depression Screen Depression Screen [facility] Start: 1970 COVID-19 Vaccine (#1) COVID-19 Vacci ne (#1) [facility] Start: 1968 Screening for malign ant neoplasm of colon [facility] Payers Date Payer Category Payer Self-pay [id number] 2023 Private Health Insurance [id number] 2023 Private Health Insurance [id number] 2023 Unknown [id number] 1968 Unknown [id number] 1968 Unknown [id number] [id number] 1968 Unknown [id number] 1968 Unknown [id number] [id number] 1968 Unknown [id number] [id number] 6 1968 Unknown [id number] [id number] 9 1968 Unknown [id number] [id number] 9 1968 Unknown [id number] [id number] 1968 Unknown [id number] [id number] 1968 Unknown [id number] [id number] 1968 Unknown [id number] [id number] 1968 Unknown [id number] [id number] 1968 Unknown [id number] [id number] 1968 Unknown [id number] [id number] 9 1959 Unknown [id number] Unknown HCAP/HFA/FAP Active [id number] Unknown [id number] Social History Date Type Detail Facility Unknown if ever smoked [facility] Other Start: 08-10-2023 End: 10-05-2023 Sex Assigned At [facility] Start: 09-03-2021 End: 09-03-2021 Tobacco smoking status [facility] Smoker (finding) [facility] Start: 1970 Sex Assigned At Female [facility] Start: 12-03-2022 Tobacco smoking status [facility] Tobacco smoking consumption unknown [facility] Start: 1970 Sex Assigned At Not on file [facility] [employer] Work Phone: Start: 01-08-2024 End: 04-02-2024 Tobacco smoking status [facility] Smokes tobacco daily [facility] History of tobacco use Cigarette Smoker [facility] Start: 08-10-2023 End: 04-02-2024 Cigarettes smoked current (pack per day) - Reported 0.3 [facility] Start: 01-08-2024 End: 04-02-2024 Tobacco use and exposure User of smokeless tobacco [facility] Start: 03-11-2024 End: 04-02-2024 Alcoholic beverage intake Ex-drinker (finding) [facility] [...] Comment Current smoker, unknown frequency [facility] Clinical Notes 08-23-2021 to 07-08-2024 Joyce Almeida NP - 07/08/2024 4:56 PM RAMIRO SANCEHZ - 07/08/2024 4:30 PM Ambrose Almeida NP - 07/08/2024 4:30 PM Ambrose Almeida NP - 07/08/2024 7:40 AM EST Note Date & Type Note Facility 07-08-2024 History of Present illness Narrative Associated Problem(s): Anxiety and depression (CMS/HCC) Has long standing history of anxiety and depression, does not currently take any medications Reluctant to take meds Random kidney pain (she is not worried about it since she had a cat scan) Images from the original note were not included. Kaitlyn Ceballos is a 54 y.o. female presents with chief complaint of Fibromyalgia HPI: No significant changes: Muscle pain, fatigue, anxiety, Has fu with neurology coming up as well as cardilogist for her chest pain Feels like she was normal and felt like herself until she got covid 3 years ago and then all of her wide variety of symptoms developed SUBJECTIVE: MEDICATIONS: Current Outpatient Medications Medication Instructions cetirizine (ZYRTEC) 10 mg, Oral, Daily gabapentin (Neurontin) 100 MG capsule TAKE 1 CAPSULE BY MOUTH IN THE MORNING and 2 (TWO) CAPSULES BY MOUTH AT BEDTIME rizatriptan (Maxalt) 10 MG tablet 1 po q at onset of the migraine and may repeat x1 in 2 hours of needed max 2 / day, 2 day/week ALLERGIES: Allergies Allergen Reactions Macrobid [Nitrofurantoin] Itching Other Unknown Seasonal allergies REVIEW OF SYMPTOMS: Review of Systems Constitutional: Positive for fatigue. Negative for appetite change, chills and fever. HENT: Negative for congestion, ear pain and sore throat. Eyes: Negative for pain, discharge, redness and visual disturbance. Respiratory: Negative for cough, shortness of breath and wheezing. Cardiovascular: Positive for chest pain. Negative for palpitations and leg swelling. Gastrointestinal: Negative for abdominal pain, blood in stool, constipation, diarrhea, nausea and vomiting. Genitourinary: Negative for difficulty urinating, dysuria and frequency. Musculoskeletal: Positive for arthralgias and myalgias. Negative for back pain and joint swelling. Skin: Negative for rash and wound. Neurological: Negative for dizziness, tremors, seizures, syncope and headaches. Psychiatric/Behavioral: Negative for behavioral problems, self-injury and suicidal ideas. The patient is nervous/anxious. Hematological: Does not bruise/bleed easily. Endocrine: Negative for polydipsia, polyphagia and polyuria. Allergic/Immunologic: Negative for environmental allergies and food allergies. PAST MEDICAL HISTORY Past Medical History: Diagnosis Date Abdominal bloating Anxiety Anxiety and depression ([facility]/HCC) 08/17/2023 Asymptomatic microscopic hematuria Cervical ca ([facility]/HCC) Depression (CMS/[facility]) Dysphagia Endometriosis Excessive cerumen in ear canal, left GERD (gastroesophageal reflux disease) 10/16/2023 Headache Itching Left flank pain Lymphadenopathy, cervical Osteoporosis (CMS/HCC) Tobacco user 08/17/2023 Urinary frequency UTI symptoms Varicose veins of ankle Visual impairment Weight gain Past Surgical History: Procedure Laterality Date ESOPHAGEAL DILATION HYSTERECTOMY family history includes Alcohol abuse in her father; Alzheimer's disease in her father; Asthma in her mother; Cancer in her brother, maternal grandmother, and mother; Coronary artery disease in her father; Diabetes in her maternal grandmother and mother; Stroke in her mother. OBJECTIVE: Visit Vitals BP 120/78 (BP Location: Left arm, Patient Position: Sitting, BP Cuff Size: Adult long) Pulse 97 Temp 98.1 F (Temporal) Resp 18 Ht 5' 4 Wt 135 lb 6.4 oz SpO2 97% BMI 23.24 kg/m Smoking Status Every Day BSA 1.67 m Physical Exam Vitals and nursing note reviewed. Constitutional: General: She is not in acute distress. Appearance: Normal appearance. HENT: Head: Normocephalic and atraumatic. Right Ear: External ear normal. Left Ear: External ear normal. Nose: Nose normal. Mouth/Throat: Mouth: Mucous membranes are moist. Eyes: Extraocular Movements: Extraocular movements intact. Conjunctiva/sclera: Conjunctivae normal. Cardiovascular: Rate and Rhythm: Normal rate and regular rhythm. Pulses: Normal pulses. Heart sounds: Normal heart sounds. Pulmonary: Effort: Pulmonary effort is normal. Breath sounds: Normal breath sounds. Abdominal: General: Bowel sounds are normal. There is no distension. Palpations: Abdomen is soft. There is no mass. Tenderness: There is no abdominal tenderness. Musculoskeletal: General: Normal range of motion. Cervical back: Normal range of motion and neck supple. Skin: General: Skin is warm and dry. Capillary Refill: Capillary refill takes 2 to 3 seconds. Findings: No rash. Neurological: General: No focal deficit present. Mental Status: She is alert and oriented to person, place, and time. Psychiatric: Mood and Affect: Mood normal. Behavior: Behavior normal. Thought Content: Thought content normal. Judgment: Judgment normal. ASSESSMENT AND PLAN: No follow-ups on file. Problem List Items Addressed This Visit Tobacco user The patient has been advised of the risks of continued smoking: stroke, [place], all forms of cancer, lung disease, and . Options for quitting smoking include: cold turkey, hypnosis, acupuncture, nicotine replacement meds (gum, lozenges, and patches), Buproprion, and Varenicline. At this time pt is encouraged to evaluate their goals for wanting to quit smoking, and reach out to provider when ready to start this process Anxiety and depression (CMS/HCC) Has long standing history of anxiety and depression, does not currently take any medications Reluctant to take meds Fibromyalgia - Primary Is seeing Neurology for this: has also had MRI brain too Pt is discouraged as she feels as though does she really have fibro or is it just a label as to not finding something else, is apprehensive about taking medications I acknowledge her feelings, and explained that sometimes this truly can be a quite debilitating problem. I would encourage her to discuss with neurology, be open to trialing different combos of medications She could look into an anti inflammatory diet, as well as other holistic medicine options At this point not a lot else to offer her when expresses concern over taking medications as well Colon cancer screening Colon cancer screening options were discussed with patient, as well as why colon cancer screening is indicated. Options are Colonoscopy: direct visualization, every 10 years (unless indicated more frequently), risks and benefits were discussed Cologuard: every 3 years, risks and benefits were discussed , contraindications were discussed (family hx of colon cancer, colon polyps) Patient has elected to: cologuard Relevant Orders Cologuard colon cancer screening Associated Problem(s): Colon cancer screening Colon cancer screening options were discussed with patient, as well as why colon cancer screening is indicated. Options are Colonoscopy: direct visualization, every 10 years (unless indicated more frequently), risks and benefits were discussed Cologuard: every 3 years, risks and benefits were discussed , contraindications were discussed (family hx of colon cancer, colon polyps) Patient has elected to: cologuard Associated Problem(s): Tobacco user The patient has been advised of the risks of continued smoking: stroke, [place], all forms of cancer, lung disease, and . Options for quitting smoking include: cold turkey, hypnosis, acupuncture, nicotine replacement meds (gum, lozenges, and patches), Buproprion, and Varenicline. At this time pt is encouraged to evaluate their goals for wanting to quit smoking, and reach out to provider when ready to start this process Associated Problem(s): Fibromyalgia Is seeing Neurology for this: has also had MRI brain too Pt is discouraged as she feels as though does she really have fibro or is it just a label as to not finding something else, is apprehensive about taking medications I acknowledge her feelings, and explained that sometimes this truly can be a quite debilitating problem. I would encourage her to discuss with neurology, be open to trialing different combos of medications She could look into an anti inflammatory diet, as well as other holistic medicine options At this point not a lot else to offer her when expresses concern over taking medications as well documented in this encounter [facility] 06-12-2024 History of Present illness Narrative Associated Problem(s): Fibromyalgia Lengthy discussion about fibromyalgia, and her sxs of wide spread muscle pain etc She feels as though she is not getting better, profound effect on life I have recommended she discuss this with Neurology to find a combo of meds that work for her Associated Problem(s): URI, acute We discussed that it is possible that she could have COVID, however testing now 3-4 days later may not yield an accurate test, and she does not want anti virals to take No fever/productive cough no atb at this time We will check CXR, to r/o pneumonia I did give her a sample of Airsupra 2 puffs every 6 hours as needed for dyspnea or wheezing Lot # [id number], exp 09/2024, instructed to rinse mouth after use Offered to send in zofran for nausea , she decline Rest, fluids, fu if not better Pt typically have pain in her chest and back (fibromyalgia) however Monday she started having headaches, both ears are clogged, stuffy nose, sore throat, nausea, full body pain, sob, diarrhea and constipation, and chills. Pt has been taking her allergy medication Images from the original note were not included. Kaitlyn Ceballos is a 54 y.o. female presents with chief complaint of No chief complaint on file. HPI: Here c/o not feeling well; Underlying Fibro that she is seeing Neurology for, low dose of gabapentin, she reports she has not had good control of symptoms, on this past Monday did more than she should have. The following day noted more wide spread muscle/body pain, and fatigue, then developed sore throat, sinus pressure, stuffy nose, pain when breathing, diarrhea and nausea. She denies any colored mucus, no fever, pain is located more about the entire sternum region, feels like cannot take a deep breath in. No other symptoms SUBJECTIVE: MEDICATIONS: Current Outpatient Medications Medication Instructions cetirizine (ZYRTEC) 10 mg, Oral, Daily gabapentin (Neurontin) 100 MG capsule TAKE 1 CAPSULE BY MOUTH IN THE MORNING and 2 (TWO) CAPSULES BY MOUTH AT BEDTIME rizatriptan (Maxalt) 10 MG tablet 1 po q at onset of the migraine and may repeat x1 in 2 hours of needed max 2 / day, 2 day/week ALLERGIES: Allergies Allergen Reactions Macrobid [Nitrofurantoin] Itching Other Unknown Seasonal allergies REVIEW OF SYMPTOMS: Review of Systems Constitutional: Positive for fatigue. Negative for appetite change, chills and fever. HENT: Positive for sinus pressure and sore throat. Negative for congestion and ear pain. Eyes: Negative for pain, discharge, redness and visual disturbance. Respiratory: Positive for chest tightness. Negative for cough, shortness of breath and wheezing. Cardiovascular: Positive for chest pain (around the sternal region). Negative for palpitations and leg swelling. Gastrointestinal: Positive for diarrhea and nausea. Negative for abdominal pain, blood in stool, constipation and vomiting. Genitourinary: Negative for difficulty urinating, dysuria and frequency. Musculoskeletal: Positive for myalgias. Negative for arthralgias, back pain and joint swelling. Skin: Negative for rash and wound. Neurological: Negative for dizziness, tremors, seizures, syncope and headaches. Psychiatric/Behavioral: Negative for behavioral problems, self-injury and suicidal ideas. The patient is not nervous/anxious. Hematological: Does not bruise/bleed easily. Endocrine: Negative for polydipsia, polyphagia and polyuria. Allergic/Immunologic: Negative for environmental allergies and food allergies. PAST MEDICAL HISTORY Past Medical History: Diagnosis Date Abdominal bloating Anxiety Anxiety and depression (CMS/HCC) 08/17/2023 Asymptomatic microscopic hematuria Cervical ca (CMS/HCC) Depression (CMS/[facility]) Dysphagia Endometriosis Excessive cerumen in ear canal, left GERD (gastroesophageal reflux disease) 10/16/2023 Headache Itching Left flank pain Lymphadenopathy, cervical Osteoporosis (CMS/HCC) Tobacco user 08/17/2023 Urinary frequency UTI symptoms Varicose veins of ankle Visual impairment Weight gain Past Surgical History: Procedure Laterality Date ESOPHAGEAL DILATION HYSTERECTOMY family history includes Alcohol abuse in her father; Alzheimer's disease in her father; Asthma in her mother; Cancer in her brother, maternal grandmother, and mother; Coronary artery disease in her father; Diabetes in her maternal grandmother and mother; Stroke in her mother. OBJECTIVE: Visit Vitals BP 110/60 (BP Location: Left arm, Patient Position: Sitting, BP Cuff Size: Adult long) Pulse 90 Temp 98.8 F (Temporal) Resp 19 Ht 5' 4 Wt 134 lb 3.2 oz SpO2 98% BMI 23.04 kg/m Smoking Status Every Day BSA 1.66 m Physical Exam Vitals and nursing note reviewed. Constitutional: General: She is not in acute distress. Appearance: Normal appearance. She is ill-appearing (uncomfortable, mild ill appearing, NAD). HENT: Head: Normocephalic and atraumatic. Right Ear: Tympanic membrane, ear canal and external ear normal. Left Ear: Tympanic membrane, ear canal and external ear normal. Nose: Rhinorrhea present. No congestion. Mouth/Throat: Mouth: Mucous membranes are moist. Pharynx: No oropharyngeal exudate or posterior oropharyngeal erythema. Eyes: Extraocular Movements: Extraocular movements intact. Conjunctiva/sclera: Conjunctivae normal. Neck: Vascular: No carotid bruit. Cardiovascular: Rate and Rhythm: Normal rate and regular rhythm. Pulses: Normal pulses. Heart sounds: Normal heart sounds. Pulmonary: Effort: Pulmonary effort is normal. Breath sounds: Normal breath sounds. No wheezing, rhonchi or rales. Abdominal: General: Bowel sounds are normal. There is no distension. Palpations: Abdomen is soft. There is no mass. Tenderness: There is no abdominal tenderness. Musculoskeletal: General: Normal range of motion. Cervical back: Normal range of motion and neck supple. Right lower leg: No edema. Left lower leg: No edema. Lymphadenopathy: Cervical: Cervical adenopathy (tenderness to glands) present. Skin: General: Skin is warm and dry. Capillary Refill: Capillary refill takes 2 to 3 seconds. Findings: No rash. Neurological: General: No focal deficit present. Mental Status: She is alert and oriented to person, place, and time. Psychiatric: Behavior: Behavior normal. Thought Content: Thought content normal. Judgment: Judgment normal. Comments: tearful ASSESSMENT AND PLAN: No follow-ups on file. Problem List Items Addressed This Visit Fibromyalgia Lengthy discussion about fibromyalgia, and her sxs of wide spread muscle pain etc She feels as though she is not getting better, profound effect on life I have recommended she discuss this with Neurology to find a combo of meds that work for her URI, acute - Primary We discussed that it is possible that she could have COVID, however testing now 3-4 days later may not yield an accurate test, and she does not want anti virals to take No fever/productive cough no atb at this time We will check CXR, to r/o pneumonia I did give her a sample of Airsupra 2 puffs every 6 hours as needed for dyspnea or wheezing Lot # [id number], exp 09/2024, instructed to rinse mouth after use Offered to send in zofran for nausea , she decline Rest, fluids, fu if not better Relevant Orders XR chest 2 views documented in this encounter [facility] 06-04-2024 History of Present illness Narrative Skin Check Location: Patient requests [...] limited to risks of scarring, darker or 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 [...] year skin exam documented in this encounter [facility] 05-10-2024 Note [place] Note Reason for cardiology [...] or focal air (more content not included)... [facility] 04-02-2024 History of Present illness Narrative No chief complaint on file. Subjective HPI Kaitlyn states she did not start the gabapentin. She states she would like to discuss the test results and get a diagnosis before she starts a medication. She had the MRI done yesterday. She admits pain all over the place. She states that her hands have now started to go numb on occasion. She also has face pain on the left now. She stopped the prozac. The chest pain has improved off of the prozac. She feels better when she has gotten a shot of steroid and a steroid packs. Past Medical History: Diagnosis Date Abdominal bloating Anxiety Anxiety and depression ([facility]) 08/17/2023 Asymptomatic microscopic hematuria Cervical ca ([facility]) Depression ([facility]) Dysphagia Endometriosis Excessive cerumen in ear canal, left GERD (gastroesophageal reflux disease) 10/16/2023 Headache Itching Left flank pain Lymphadenopathy, cervical Osteoporosis ([facility]) Tobacco user 08/17/2023 Urinary frequency UTI symptoms Varicose veins of ankle Visual impairment Weight gain Past Surgical History: Procedure Laterality Date ESOPHAGEAL DILATION HYSTERECTOMY Family History Problem Relation Name Age of Onset Diabetes Mother Corrine Sharma Cancer Mother Corrine Sharma Asthma Mother Corrine Sharma Stroke Mother Corrine Sharma Alcohol abuse Father Alzheimer's disease Father Coronary artery disease Father Cancer Brother Diabetes Maternal Grandmother Cancer Maternal Grandmother Melanoma Neg Hx Social History Tobacco Use Smoking status: Every Day Current packs/day: 0.25 Average packs/day: 0.3 packs/day for 15.0 years (3.8 ttl pk-yrs) Types: Cigarettes Smokeless tobacco: Current Tobacco comments: Current smoker, unknown frequency Substance Use Topics Alcohol use: Not Currently Allergies: Macrobid [nitrofurantoin] and Other General: No fever or chills HEENT: No nasal congestion or runny nose Pulmonary: No shortness of breath or cough Cardiovascular: No chest pain or palpitations GI: No nausea or vomiting : No dysuria or hematuria Musculoskeletal: No new aches or pains or muscle weakness Infectious: no recurrent fevers or infections Dermatologic: No rashes or skin lesions Neurologic: No new headaches or dizziness There were no vitals filed for this visit. There is no height or weight on file to calculate BMI. Neurologic exam: General: Normal body habitus, cooperative, pleasant Mental status: Awake, alert to person, place and time. Recent and remote memory are intact. Attention and concentration are normal. Fund of knowledge is appropriate for level of education. HEENT: NC/AT Cranial nerves: CN II: Visual chua full to confrontation. No loss of vision CN III, IV, : pupils equal round and reactive to light. Extraocular movements intact. No ptosis present. CN V: Facial sensation is normal. CN VII: Full and symmetric facial movement. CN VIII: Hearing is normal CN IX and X: Palate elevates symmetrically. CN XI: Shoulder shrug is normal bilaterally. CN XII: Tongue is midline without atrophy or fasciculation. Speech: Clear and fluent no aphasia or dysarthria Pronator drift: Negative bilateral upper extremity Coordination: Intact, no signs of dysmetria Good finger to nose and rapid alternating movements Sensory: Sensation is intact to light, temperature and vibratory touch throughout four extremities. Pinprick intact in all four extremities. Motor: LUE 5/5 RUE 5/5 LLE 5/5 RLE 5/5 Tone: Physiologic, no tremor, bradykinesia or rigidity DTR: Bilateral Biceps 2/4 left, 3/4 right Bilateral BR 2/4 left, 3/4 right Bilateral Patellar 2/4 left, 3/4 right No spasticity Gait: Normal to casual gait Romberg's Negative Assessment/Plan There are no diagnoses linked to this encounter. 53 year old female with myalgias and headaches. Her biggest concern at this time is the body aches and pains that continue. She is uncertain if this has occurred from her job. 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 She does repetitive movements with her right upper extremity and she has pain into her chest that goes all across her chest not just on the right she also can have some pain into the left upper extremity. She is starting to have some pain down into her legs. She can have stabbing pains also. She also has pain around her shoulder area that goes into her back and up into her neck. EEG was normal and her lab work was nonacute. She had an MRI of her brain that showed no lesions masses tumors or other. This is not multiple sclerosis. At this time I suspect this is more of a fibromyalgia type of pattern. She did not end up trying the gabapentin and I would recommend that she tries that 1st to see if that will help with some of the discomfort. She does have some chest pain and pain in her legs. She questions seeing a vascular surgeon. At this time that would be up to her and her family doctor if she needs to see a investigator operator and vascular surgeon. I see nothing in her legs to suggest vascular disease there is no edema erythema or other. She does smoke and that is a risk factor but again I see nothing to suggest PVD She does have some hyperreflexia on the right side and I do believe an MRI brain is warranted to look for any cause. We can consider an MRI of the cervical spine but she has now measurable weakness to suggest a lesion so would try the Gabapentin first. Can consider a skin bx for small fiber neuropathy. She has some tension and migraine headaches and would benefit from trial of a triptan for abortive usage. . Review and summary of old records: EMG BUE normal Labwork all negative for lyme, ESR 14, TSH 2.050, CK 146, CRP less than 0.3, rheumatoid factor less than 10, DAWIT titer negative, antinuclear AB reflex titer / ABID antinuclear antibodies negative . . . Plan: EMG BUE wnl Labs wnl Trial of Neurontin 100mg 1 po q am and 2 po q hs [place] of maxalt for abortive use of migraine Stay off of prozac MRI brain non-acute home exercise program with stretching. Can ask to be re-assigned to a different positions at work. monitor the [employer] We will decide on the next up in treatment once her workup above is completed. This was discussed with the patient, all questions were answered and they agreed with the treatment plan. The patient is to call with any worsening of the condition or new symptoms. Return to clinic: 2 months documented in this encounter [facility] 05-26-2023 Evaluation note Encounter Date Diagnosis Assessment [...] PCP. These signs were reviewed with her. [facility] Other 2022 Evaluation note* Encounter Date Diagnosis Assessment Notes Treatment Notes Treatment Clinical Notes Aug, Dysphagia, unspecified type (ICD-10 - R13.10) [facility] Other Evaluation noteNo assessment information available [facility] Work Phone: Evaluation note* Diagnosis Visit for screening mammogram Other screening mammogram documented in this encounter [facility] Work Phone: evaluation note* Diagnosis Anxiety and depression (CMS/HCC)- Primary Tobacco [...] seborrheic keratosis documented [facility] this encounter [facility]* Diagnosis Anxiety and depression (CMS/HCC)- Primary Tobacco user Tobacco use disorder BMI 23.0-23.9, adult Myalgia Unspecified myalgia and myositis Myalgia- Primary Unspecified myalgia and myositis Tobacco user Tobacco use disorder Anxiety and depression (CMS/HCC)- Primary Paresthesia of skin Myalgia Unspecified myalgia and myositis URI, acute- Primary Acute upper respiratory infections of unspecified site Fibromyalgia Unspecified myalgia and myositis documented [facility]* Diagnosis Anxiety and depression (CMS/HCC)- Primary Tobacco user Tobacco use disorder BMI 23.0-23.9, adult Myalgia Unspecified myalgia and myositis Myalgia- Primary Unspecified myalgia and myositis Tobacco user Tobacco use disorder Anxiety and depression (CMS/HCC)- Primary Paresthesia of skin Myalgia Unspecified myalgia and myositis URI, acute- Primary Acute upper respiratory infections of unspecified site Fibromyalgia Unspecified myalgia and myositis Gastroesophageal reflux disease, unspecified whether esophagitis present documented [facility]* Diagnosis Anxiety and depression ([facility]/HCC)- Primary Tobacco user Tobacco use disorder BMI 23.0-23.9, adult Myalgia Unspecified myalgia and myositis Myalgia- Primary Unspecified myalgia and myositis Tobacco user Tobacco use disorder Anxiety and depression ([facility])- Primary Paresthesia of skin Myalgia Unspecified myalgia and myositis URI, acute- Primary Acute upper respiratory infections of unspecified site Fibromyalgia Unspecified myalgia and myositis Fibromyalgia- Primary Unspecified myalgia and myositis Tobacco user Tobacco use disorder Anxiety and depression ([facility]) Colon cancer screening Special screening for malignant neoplasms, colon documented in this encounter [facility]* Diagnosis Paresthesia of skin- Primary Myalgia Unspecified myalgia and myositis Pain Generalized pain Migraine without aura and without status migrainosus, not intractable ([facility]) Tension-type headache, not intractable, unspecified chronicity pattern Hyperreflexia Abnormal reflex documented in this encounter [facility]* Diagnosis Other chest pain- Primary documented in this encounter [facility] general Narrative - Reported* Type Description Date Surgical History hysterectomy Hospitalization History pneumonia [facility] Other History general Narrative - Reported* Type Description Date Medical History ENLARGE LIVER Medical History HEMATURIA Surgical History hysterectomy Hospitalization History pneumonia X2 Hospitalization History CHILD [facility] Other Reason for referral (narrative)* Consultation (Routine) - Pending Review Specialty Diagnoses / Procedures Referred By Darshan yap Referred To Contact Cardiology Diagnoses Other chest pain Procedures DE OFFICE/OUTPATIENT [facility] 60 MINUTES Joyce Almeida NP [address] [place] [address] Bobby Claudio MD [address] [place] [address] Referral ID Status Reason Start Date Expiration Date Visits Requested Visits Authorized [id number] Pending Review Specialty Services Required 05/01/2024 10/28/2024 1 1 [facility] Summary Purpose Family History Relationship Condition Age at Onset Recorded Date/T belinda Not Specified Malignant neoplasm of brain Unknown father Congestive heart failure Unknown grandparent Malignant neoplasm of cervix Unknown Relationship Condition Age at Onset Recorded Date/T belinda mother Malignant neoplasm of brain Unknown father Congestive heart failure Unknown grandparent Malignant neoplasm of cervix Unknown brother Unknown Malignant neoplasm Unknown father Unknown mother Unknown Advance Directives Advance Directive Response Recorded Date/ Time Advance Directives No August 26, 2021 5:38pm Advance Directive Response Recorded Date/ Time Advance Directives No August 26, 2021 6:38pm Reason for Referral Specialty Diagnoses / Procedures Referred By Darshan yap Referred To Contact Radiology Diagnoses Visit for screening mammogram Procedures [facility] DIGITAL SCREEN SELF REFERRAL W OR WO CAD BILATERAL Joyce Almeida [address] [place] [address] Referral ID Status Reason Start Date Expiration Date Visits Re quested Visits Authorized [id number] Closed 12/03/2022 12/03/2023 1 1 Chief Complaint and Reason for Visit Chief Complaint r29.2 r20.2 Additional Source Comments REASON FOR VISIT (unrecogniz ed section and content) Specialty Diagnoses / Procedures Referred By Darshan yap Referred To Contact Radiology Diagnoses Visit for screening mammogram Procedures [facility] DIGITAL SCREEN SELF REFERRAL W OR WO CAD BILATERAL Joyce Almeida [address] [facility] [place] [address] Referral ID Status Reason Start Date Expiration Date Visits Re quested Visits Authorized [id number] Closed 12/03/2022 12/03/2023 1 1 Reason Comments Skin Check Suspicious Skin Lesion Reason Comments Med Refill Reason Comments Fibromyalgia Reason Comments Pain INFORMATION SOURCE (unrecogn ized section and content) DATE CREATED AUTHOR 04/12/2022 [facility] DATE CREATED AUTHOR AUTHOR'S ORGANIZ ATION 12/11/2023 [facility] DATE CREATED AUTHOR AUTHOR'S ORGANIZ ATION 01/12/2024 [facility] DATE CREATED AUTHOR AUTHOR'S ORGANIZ ATION 04/05/2024 [facility] DATE CREATED AUTHOR AUTHOR'S ORGANIZ ATION 05/12/2024 [facility] DATE CREATED AUTHOR AUTHOR'S ORGANIZ ATION 07/10/2024 [facility] d[facility] Specialists EPIC Care Teams (unrecognized sec tion and content) Team Status: Inactive Member Role Status Dates Jeus Ramirez MD Attending Provider Active Electrical Engineering Professor Relationship Specialty Start Date End Date Joyce Almeida [address] [place] [address] PCP - General Nurse Practitioner 11/24/22 Team Status: Active Member Role Status Dates Joyce Almeida Primary Care Provider Active Team Status: Inactive Member Role Status Dates Joyce Almeida Primary Care Provider Active Sta rt: April 01, 2024 End: April 01, 2024 Faina Owens APRN Attending Provider Active Start: April 01, 2024 End: April 01, 2024 Electrical Engineering Professor Relationship Specialty Start Date End Date Abel Lemus MD [address] [place] [address] PCP - General Family Medicine 10/02/23 Joyce Almeida NP [address] [place] [address] Nurse Practitioner Family Medicine 08/07/22 Joyce Almeida NP [address] [place] [address] Nurse Practitioner Family Medicine 10/02/23 Electrical Engineering Professor Relationship Specialty Start Date End Date Abel Lemus MD [address] [place] [address] PCP - General Family Medicine 10/02/23 Joyce Almeida NP [address] [place] [address] Nurse Practitioner Family Medicine 08/07/22 Joyce Almeida NP [address] [place] [address] Nurse Practitioner Family Medicine 10/02/23 Electrical Engineering Professor Relationship Specialty Start Date End Date Abel Lemus MD [address] [place] [phone] PCP - General Family Medicine 10/02/23 Joyce Almeida NP [address] [place] [address] Nurse Practitioner Family Medicine 08/07/22 Joyce Almeida NP [address] [place] [address] Nurse Practitioner Family Medicine 10/02/23 Electrical Engineering Professor Relationship Specialty Start Date End Date Abel Lemus MD [address] [place] [address] PCP - General Family Medicine 10/02/23 Joyce Almeida NP [address] [place] [address] Nurse Practitioner Family Medicine 08/07/22 Joyce Almeida NP [address] [place] [phone] Nurse Practitioner Family Medicine 10/02/23 Electrical Engineering Professor Relationship Specialty Start Date End Date Abel Lemus MD [address] [place] [phone] PCP - General Family Medicine 10/02/23 Joyce Almeida NP [address] [place] [address] Nurse Practitioner Family Medicine 08/07/22 Joyce Almeida NP [address] [place] [address] Nurse Practitioner Family Medicine 10/02/23 Electrical Engineering Professor Relationship Specialty Start Date End Date Abel Lemus MD [address] [place] [address] PCP - General Family Medicine 10/02/23 Joyce Almeida NP [address] [place] [address] Nurse Practitioner Family Medicine 08/07/22 Joyce Almeida NP [address] [place] [address] Nurse Practitioner Family Medicine 10/02/23 Electrical Engineering Professor Relationship Specialty Start Date End Date Abel Lemus MD [address] [place] [phone] PCP - General Family Medicine 10/02/23 Joyce Almeida NP [address] [place] [address] Nurse Practitioner Family Medicine 08/07/22 Joyce Almeida NP [address] [place] [address] Nurse Practitioner Family Medicine 10/02/23 Electrical Engineering Professor Relationship Specialty Start Date End Date Abel Lemus MD [address] [place] [address] PCP - General Family Medicine 10/02/23 Joyce Almeida NP [address] [place] [address] Nurse Practitioner Family Medicine 08/07/22 Joyce Almeida NP [address] [place] [address] Nurse Practitioner Family Medicine 10/02/23 Electrical Engineering Professor Relationship Specialty Start Date End Date Abel Lemus MD [address] [place] [phone] PCP - General Family Medicine 10/02/23 Joyce Almeida NP [address] [place] [address] Nurse Practitioner Family Medicine 08/07/22 Joyce Almeida NP [address] [place] [phone] Nurse Practitioner Family Medicine 10/02/23 Electrical Engineering Professor Relationship Specialty Start Date End Date Abel Lemus MD [address] [place] [address] PCP - General Family Medicine 10/02/23 Joyce Almeida NP [address] [place] [address] Nurse Practitioner Family Medicine 08/07/22 Joyce Almeida NP [address] [place] [address] Nurse Practitioner Family Medicine 10/02/23 [...] BE BASED ON THE PRIMARY CLINICAL RECORDS. [employer] [facility]. provides no warranty or guarantee of the accuracy or completeness of information in this document.
--- NOTE | 2024-07-29 07:30 | CA_ITS ---
Patient Name: EARL BERKOWITZ MR#: [id number] : 1970 Exam Date: 07/29/2024 Ordering Doctor: DR. ELYSSA BENÍTEZ M.D. ECHOCARDIOGRAM REPORT PROCEDURE: CA ECHO DOPPLER COMPLETE INDICATIONS: Dyspnea on exertion, chest pain, smoker COMPARISON: None. DESCRIPTION: COMPLETE ECHOCARDIOGRAM Real-time transthoracic echocardiography with 2D, M-mode, spectral and color flow Doppler performed. QUALITY: Technical quality was good. LEFT VENTRICLE: Normal chamber size. Normal left ventricular wall thickness. LV EF: Global left ventricular systolic function is normal; visually estimated ejection fraction is 55 to 60%. No obvious wall motion abnormalities. DIASTOLIC: Normal diastolic function. ATRIAL SEPTUM: Visually appears intact. LEFT ATRIUM: Normal chamber size. RIGHT ATRIUM: Normal chamber size. RIGHT VENTRICLE: Normal chamber size. Normal right ventricular systolic function. TRICUSPID VALVE: Normal mobility and thickness. No stenosis with trivial regurgitation. No evidence of pulmonary hypertension. RVSP 25 mmHg MITRAL VALVE: Normal mobility and thickness. No evidence of mitral valve stenosis. Mild mitral annular calcification. No mitral regurgitation. AORTIC VALVE: Normal trileaflet appearance. No visible sclerosis. Normal leaflet mobility. No evidence of aortic valve stenosis. No aortic regurgitation. AORTIC ROOT: Normal diameter and appearance. PULMONIC VALVE: Normal thickness and mobility. No stenosis. Trivial regurgitation. PERICARDIUM: No evidence of pericardial effusion. IVC: Collapses with inspirations. IVC is normal in size. CONCLUSION: 1. Global left ventricular systolic function is normal; visually estimated ejection fraction is 55 to 60% 2. Normal right ventricular size and systolic function 3. The left atrium is normal in size 4. Normal diastolic function 5. No significant valvular abnormalities Adult Echocardiography Procedure Report Left Ventricle LVEDD (3.7 - 5.6 cm): 4.25 cm LVESD (2.2 - 4.0 cm): 2.59 cm LVIVS thickness (0.6 - 1.2 cm): 0.50 cm LVPW thickness (0.5 - 1.0 cm): 0.71 cm e': 0.12 m/s E - e': 6.67 LVOT Max Gradient: 3.38 mm[Hg] LVOT Area (cm2): 0.92 m/s Peak Velocity (LVOT): 0.92 m/s Mean Velocity (LVOT): 0.58 m/s LVOT Diameter 1.81 cm Left Atrium LA Volume Index (2D A2C): 18.43 ml/m2 Left Atrium Systolic Dimension: 2.42 cm Mitral Valve MV E to A Ratio: 1.27 Mitral Valve A-Wave Peak Velocity: 0.61 m/s Mitral Valve E-Wave Peak Velocity: 0.77 m/s Right Ventricle Aorta AO Root Diam: 3.12 cm Aortic Valve AoV Area (Peak Ranjan): 2.06 cm2, 2.06 cm2 AoV Area (VTI): 1.81 cm2, 1.81 cm2 Peak Velocity(Antegrade Flow): 1.15 m/s Peak Gradient(Antegrade Flow): 5.31 mm[Hg] Mean Velocity(Antegrade Flow): 0.78 m/s Mean Gradient(Antegrade Flow): 2.74 mm[Hg] Velocity Time Integral: 24.90 cm Tricuspid Valve Peak Velocity (Regurgitant Flow): 2.43 m/s Pulmonic Valve Mean Gradient: 4.00 mm[Hg] Mean Velocity: 0.91 m/s Peak Velocity: 1.33 m/s, 1.50 m/s Peak Gradient: 8.95 mm[Hg], 7.03 mm[Hg] Right Atrium Right Atrium Systolic Pressure: 15.71 ml, 15.71 ml Dictated by: Paloma Banuelos M.D. on 07/29/2024 at 12:25 Approved by: Paloma Banuelos M.D. on 07/29/2024 at 12:28
[2024-07-29] MEDS: REGADENOSON 0.4 MG/5 ML SYRINGE IV (09:06)
== END 2024-07-29 06:56 | disposition home or self-care (01) ==
PROVIDERS: PCP Nurse Practitioner; Visit Provider Internal Medicine Cardiovascular Disease
DX: R07.9 Chest pain, unspecified (principal); R06.09 Other forms of dyspnea
CPT/HCPCS: 78452; 93017; 93306; A9500; J2785

== ENCOUNTER 2025-07-31 23:28 | Emergency (ER) | payer OTHER, SELFPAY ==
[2025-07-31 23:50] VITALS: BP 124/79; PULSE 71; TEMP 36.6; O2SAT 100; BMI 43.5
--- OUTSIDE RECORDS SUMMARY | 2025-08-01 01:06 | XMS_ITS | Clinical Summary ---
Author Organization [employer] [facility] tem Address [facility] [id number] [address] 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 10 tablet 01/11/2024ctive methylPREDNISolone (MEDROL, VERONICA,) 4 mg tablet follow package directions 21 tablet 4Active Active Problems ProblemNoted DateDiagnosed DateThroat pain03/31/2022 Social History Tobacco UseTypesPacks/DayYears UsedDateSmoking Tobacco: Every DaySmokeless Tobacco: NeverAlcohol UseStandard Drinks/WeekCommentsNo0 (1 standard drink = 0.6 oz pure alcohol)ChildcareAnswerDate JvisnwjnHqfhcqztrSyvsurs49/11/2019Employment AnswerDate ZyaekqxqVnkambrpqfIapzlmp22/11/2019Hunger ScreeningAnswerDate RecordedWithin the past 12 months we worried whether our food would run out before we got money to buy more.Never True01/11/2024Within the past 12 months the food we bought just didn't last and we didn't have money to get more.Never True4Purpose - LifeAnswerDate RecordedPurpose and direction in life Stxgnxb15/11/2021CommentsUnknownSex and Gender InformationValueDate RecordedSex Assigned at BirthNot on fileLegal VanYsemyw91/04/2015 9:19 PM EDT Gender IdentityNot on fileSexual OrientationNot on file Last Filed Vital Signs Vital SignReadingTime TakenCommentsBlood Psdbmmwx758/75001/11/2024 10:31 AM EDT Errbn681201/11/2024 10:31 AM AJDWlemhpwnuuh65.8 ??C (98.2 ??F)01/11/2024 10:31 AM EDTRespiratory Udmm280301/11/2024 10:31 AM EDTOxygen Xiinmgsynl444%01/11/2024 10:31 AM EDTInhaled Oxygen Concentration--Csvobu91.2 kg (135 lb)01/11/2024 10:31 AM GEKNouzei793.6 cm (5' 4 )01/11/2024 10:31 AM EDTBody Mass Index23.17 01/11/2024 10:31 AM EDT Plan of Treatment Health MaintenanceDue DateLast DoneCommentsDepression Uetcmdpnh90/12/1980Tobacco Labdgbpik41/12/1980DTaP,Tdap and Td Vaccines (1 - Tdap)01/16/1987Zoster (Shingles) Vaccine (1 of 2)01/16/1987Pap Smear01/16/1989Adult BMI Screening 506/01/2024Influenza Qphkosh6904/07/2025 Medical Devices Not on file Insurance Care Teams Team MemberRelationshipSpecialtyStart DateEnd Date RojelioJoyce guerra, CALENDER ROLL PRESS OPERATOR-PUBLICITY WRITER PCP - GeneralNurse Practitioner01/11/24
--- OUTSIDE RECORDS SUMMARY | 2025-08-01 01:07 | XMS_ITS | Clinical Summary ---
Author Organization [facility] Address [address], [address] [place] [address] Care Team Providers Care E Commerce Marketing Analyst Name Role Phone Joyce Almeida ANIMAL PHYSIOLOGIST - HEALTH SERVICES INFORMATION SPECIALIST Primary Care Provide r Family History Medical HistoryRelationNameCommentsBreast CancerMaternal GrandmotherRelationName StatusCommentsMaternal Grandmother Social History Tobacco UseTypesPacks/DayYears UsedDateSmoking Tobacco: Never Assessed Tobacco Cessation:Counseling Given: Not Answered CommentsNoSex and Gender InformationValueDate RecordedSex Assigned at BirthNot on fileLegal AeqIbhliv96/08/2016 2:53 PM EDTGender IdentityNot on file Sexual OrientationNot on file Last Filed Vital Signs Vital SignReadingTime TakenCommentsBlood Pressure--Pulse--Temperature-- Respiratory Rate--Oxygen Saturation--Inhaled Oxygen Concentration--Bppdfo00.2 kg (135 lb)12/08/2023 1:59 PM BLBIuqubr093.6 cm (5' 4 )12/08/2023 1:59 PM EDTBody Mass Index23.17012/08/2023 1:59 PM EDT Plan of Treatment Health MaintenanceDue DateLast DoneCommentsDepression Grhtfp8601/17/1980HIV screen 01/16/1983Hepatitis C yhdsat7901/16/1986DTaP/Tdap/Td vaccine (1 - Tdap)01/16/1987 Hepatitis B vaccine (1 of 3 - 19+ 3-dose series)01/16/1987Pap smear01/16/1989 Cervical cancer ksyyjv2901/16/1998HPV (without or with Pap)01/16/1998Lipids 01/17/20085826Nsaxuhdipqn75/12/2013FIT/FOBT: Average risk01/16/2013Sigmoidoscopy/CT xnroheyvuosb32/12/2013Pneumococcal 50+ years Vaccine (1 of 1 - PCV)01/16/2018 Shingles vaccine (1 of 2)01/16/2018Flu vaccine (#1)5COVID-19 Vaccine ( season)2025reast cancer /10/2024, 12/08/2023, 12/03/2022, Additional history existsColorectal Cancer Hhlhit5807/20/2027Fecal-DNA (Cologuard): Average risk712/Hepatitis A vaccineAged OutNo longer eligible based on patient's age to complete this topicHib vaccineAged Out No longer eligible based on patient's age to complete this topicMeningococcal (ACWY) vaccineAged OutNo longer eligible based on patient's age to complete this topicMeningococcal B vaccineAged OutNo longer eligible based on patient's age to complete this topicPolio vaccineAged OutNo longer eligible based on patient's age to complete this topic Procedures Procedure NamePriorityDate/TimeAssociated DiagnosisCommentsMAM MARBELLA DIGITAL SCREEN SELF REFERRAL W OR WO CAD TAZICFMEBOhsuayd61/03/2025 11:55 AM EDT Encounter for mammogram to establish baseline mammogram from Last 3 Months or Most Recently Relevant to Health Maintenance Results * ADEEL MARBELLA DIGITAL SCREEN SELF REFERRAL W OR WO CAD BILATERAL (12/07/2024 11:55 AM EDT)Anatomical RegionLateralityModalityBreastBilateralMammographySpecimen (Source)Anatomical Location / LateralityCollection Method / VolumeCollection TimeReceived Time12/07/2024 12:54 PM EDT Impressions 12/07/2024 12:55 PM EDT No evidence of malignancy seen in either breast. Advise annual screening mammography. Breast tissue can be either dense or not dense. Dense tissue makes it harder to find breast cancer on a mammogram and also raises the risk of developing breast cancer. Your breast tissue is NOT DENSE. Talk to your health care provider about breast density, risk for breast cancer and your individual situation. BI-RADS 1 BIRADS: BIRADS - CATEGORY 1 Negative, no evidence of malignancy. ??Normal interval follow-up is recommended in 12 months. OVERALL ASSESSMENT - NEGATIVE A letter of notification will be sent to the patient regarding the results. The [employer] recommends annual mammograms for women 40 years and older. Performing Facility: [place] [address] Narrative 12/07/2024 12:55 PM EDT EXAMINATION: SCREENING DIGITAL BILATERAL MAMMOGRAM WITH TOMOSYNTHESIS, 12/07/2024 TECHNIQUE: Screening mammography of the bilateral breasts was performed with tomosynthesis. ??2D standard and 3D tomosynthesis combination imaging performed through both breasts in the MLO and CC projection. ??Computer aided detection was utilized in the interpretation of this exam. COMPARISON: 27 November 2022; 13 November 2021 HISTORY: Screening. Positive family history of breast cancer; maternal grandmother unknown age. ??10 year history of oral contraception. ??10 year history of HRT therapy. ??TC score 2.75 FINDINGS: BREAST COMPOSITION: There are scattered areas of fibroglandular density. Bilateral breasts are composed of scattered fibroglandular density. ??No skin thickening, nipple contour changes, suspicious calcifications, suspicious masses, areas of architectural distortion or significant interval changes are noted. Authorizing ProviderResult TypeResult StatusJoyce Bey Aichholz ANIMAL PHYSIOLOGIST - NPIMG MAMMOGRAPHY ORDERABLESFinal Result from Last 3 Months or Most Recently Relevant to Health Maintenance Insurance Care Teams Team MemberRelationshipSpecialtyStart DateEnd Date RojelioJoyce guerra, ANIMAL PHYSIOLOGIST - HEALTH SERVICES INFORMATION SPECIALIST [address] [place] [address] PCP - GeneralNurse Practitioner11/24/22
--- OUTSIDE RECORDS SUMMARY | 2025-08-01 01:07 | XMS_ITS | Clinical Summary ---
Author Organization [facility] Healthcare Address [address] [place] [address] Care Team Providers Care Trauma Doctor Name Role Phone Joyce Almeida ANIMAL SHELTER CLERK Unavailable [phone] Abel Lemus MD Primary Care Provider Joyce Almeida ANIMAL SHELTER CLERK Unavailable [phone] Kerri Romeo DO Unavailable [phone] Allergies Active AllergyReactionsCriticalityNoted DateCommentsNitrofurantoinItching 08/15/20236005DdzkwXtkvtbp07/24/2023 Seasonal allergies Medications MedicationSigDispense QuantityRefillsLast FilledStart DateEnd DateStatus rizatriptan (Maxalt) 10 MG tablet Indications:Migraine without aura and without status migrainosus, not intractable1 po q at onset of the migraine and may repeat x1 in 2 hours of needed max 2 / day, 2 day/week 9 tablet 4Active gabapentin (Neurontin) 100 MG capsule Indications:Myalgia, unspecified site3 po q hs 90 capsule 5Active DULoxetine (Cymbalta) [address] capsule Indications:FibromyalgiaTake 1 capsule (30 mg) by mouth Daily Do not crush or chew. 30 capsule 506Active Active Problems ProblemNoted DateDiagnosed DateEncounter for annual wellness visit02/05/2025 Assessment & Plan (02/05/2025 6:54 AM EDT): Reviewed Ht/Wt/BMI Recommend eye exam yearly Recommend dental exams twice a year Balance work/leisure activities Exercises is recommended most days of the week (appropriate as chronic conditions allow) Follow up yearly and prn Cigarette nicotine dependence without /02/2025 Assessment & Plan (02/05/2025 6:55 AM EDT): The patient has been advised of the risks of continued smoking: stroke, HI, all forms of cancer, lung disease, and . Options for quitting smoking include: cold turkey, hypnosis, acupuncture, nicotine replacement meds(gum, lozenges, and patches), Buproprion, and Varenicline. At this time pt is encouraged to evaluate their goals for wanting to quit smoking, and reach out toprovider when ready to start this process Colon cancer biscodoey30/02/2024 Assessment & Plan (07/08/2024 6:20 PM EST): Colon cancer screening options were discussed with patient, as well as why colon cancer screening is indicated. Options are Colonoscopy: direct visualization, every 10 years (unless indicated more frequently), risks and benefits were discussed Cologuard: every 3 years, risks and benefits were discussed , contraindications were discussed (family hx of colon cancer, colon polyps) Patient has elected to: cologuard Nfyuyhcnwmne38/04/2024 Assessment & Plan (02/05/2025 6:52 AM EDT): Under care of neurology Hector and duloxetine Assessment & Plan (07/08/2024 6:42 PM EST): Is seeing Neurology for this: has also had MRI brain too Pt is discouraged as she feels as though does she really have fibro or is it just a label as to notfinding something else, is apprehensive about taking medications [...] expresses concern over taking medications as well Assessment & Plan (06/12/2024 4:36 PM EST): Lengthy discussion about fibromyalgia, and her sxs of wide spread muscle pain etc She feels as though she is not getting better, profound effect on life I have recommended she discuss this with Neurology to find a combo of meds that work for her Pure yokjpmoufbbnawrurguf87/04/2024Shortness of zugatz3905/10/2024hest pain 05/10/2024nesthesia of skin01/08/2024Pain01/08/20240042Jdapvdufiligv19/03/2024 Paresthesia of skin01/05/2024 Assessment & Plan (03/11/2024 5:35 PM EDT): Continue with neurology Tension type /31/2024Migraine without aura and without status migrainosus, not vdrqllqjsuk18/31/2024ain of both yrvsfwa9811/14/2023nxiety and kzenddotcu78/11/2024 Assessment & Plan (02/05/2025 6:52 AM EDT): Is currently taking duloxetine Assessment & Plan (07/08/2024 6:43 PM EST): Has long standing history of anxiety and depression, does not currently take any medications Reluctant to take meds Assessment & Plan (03/11/2024 5:35 PM EDT): Will hold on any meds at this time Fu in 3 months Assessment & Plan (08/17/2023 6:42 PM EST): I do suspicion that some component of her multiple symptoms does have a relationship to anxiety, she is willing to restart meds Take medication only as directed. This medication will take approximately 4-6 weeks to become effective. If any suicidal thoughts, thoughts of hurting others, or hallucinations contact the office or proceed to the Emergency Room for mental health evaluation. Medication may cause dry mouth, dizziness, and in some cases worsening in depression symptoms. Please contact the office if these occur. Fu in 4 weeks for recheck Plwvydl4308/17/2023 Assessment & Plan (10/02/2023 10:02 PM EST): Will await Neurology work up Consideration to Fibro Assessment & Plan (08/17/2023 6:43 PM EST): Many symptoms that could be explained as possible fibro, however will refer to Neuro for help with determining what true diagnosis is. Also has fatigue, muscle pain/weakness Resolved Problems ProblemNoted DateDiagnosed DateResolved DateURI, acute/09/2023 Assessment & Plan (06/12/2024 4:35 PM EST): We discussed that it is possible that [...] needed for dyspnea or wheezing Lot # [id number], exp 09/2024, instructed to rinse mouth after use Offered to send in zofran for nausea , she decline Rest, fluids, fu if not better Other chest pain/01/2024GERD (gastroesophageal reflux disease) /09/20244067Mlkdqnatguc78/29/202403/06/2024 Assessment & Plan (10/05/2023 1:15 PM EST): Fluids, rest, neg rapid Will order decadron and atb Fu if not better Reviewed s/s of when to go to ER for Tobacco user/09/2024 Assessment & Plan (02/05/2025 6:53 AM EDT): The patient has been advised of the risks of continued smoking: stroke, HI, all forms of cancer, lung disease, and . Options for quitting smoking include: cold turkey, hypnosis, acupuncture, nicotine replacement meds(gum, lozenges, and patches), Buproprion, and Varenicline. At this time pt is encouraged to evaluate their goals for wanting to quit smoking, and reach out toprovider when ready to start this process Assessment & Plan (07/08/2024 7:40 AM EST): The patient has been advised of the risks of continued smoking: stroke, HI, all forms of cancer, lung disease, and . Options for quitting smoking include: cold turkey, hypnosis, acupuncture, nicotine replacement meds(gum, lozenges, and patches), Buproprion, and Varenicline. At this time pt is encouraged to evaluate their goals for wanting to quit smoking, and reach out toprovider when ready to start this process BMI 23.0-23.9, adult Encounters DateTypeDepartmentCare TmnsJokrpyeyuoc88/03/2025 4:05 PM ESTOffice Visit [facility] [address] [place] [address] Gabriella Hackett APRN-MAKI Seborrheic keratosis (Primary Dx); Melanocytic nevus of trunk; History of SCC (squamous cell carcinoma) of skin06/09/2025amboo flowsheet [facility] [address] [place] [address] Gabriella Hackett APRN-CNP 06/09/20255682Wnvtky43/27/2025Travelfrom Last 3 Months Family History Medical HistoryRelationNameCommentsCancerBrotherAlcohol abuseFatherAlzheimer's diseaseFatherCoronary artery diseaseFatherCancerMaternal GrandmotherDiabetes Maternal GrandmotherAsthmaMotherMargaret SokotukCancerMotherMargaret Sokotuk DiabetesMotherMargaret SokotukStrokeMotherMargaret SokotukMelanomaNeg HxRelation NameStatusCommentsBrotherFatherMaternal GrandmotherMotherMargaret [place] Social History Tobacco UseTypesPacks/DayYears UsedDateSmoking Tobacco: Every DayCigarettes0.315 Smokeless Tobacco: Current Comments:Current smoker, unk nown frequency Alcohol UseStandard Drinks/WeekCommentsNot Currently0 (1 standard drink = 0.6 oz pure alcohol)B1300 Health LiteracyAnswerDate RecordedHow often do you need to have someone help you when you read instructions, pamphlets, or other written material from your doctor or pharmacy?Never01/29/2025Humiliation, Afraid, Rape, and Kick questionnaireAnswerDate RecordedWithin the last year, have you been afraid of your partner or ex-partner?No01/29/2025Within the last year, have you been humiliated or emotionally abused in other ways by your partner or ex-partner?No01/29/2025Within the last year, have you been kicked, hit, slapped, or otherwise physically hurt by your partner or ex-partner?No01/29/2025Within the last year, have you been raped or forced to have any kind of sexual activity by your partner or ex-partner?No01/29/2025Social Connection and Isolation Panel AnswerDate RecordedIn a typical week, how many times do you talk on the phone with family, friends, or neighbors?Twice a week01/29/2025How often do you get together with friends or relatives?Once a week01/29/2025How often do you attend latter day or anabaptist services?Never01/29/2025Do you belong to any clubs or organizations such as latter day groups, unions, fraternal or athletic groups, or school groups?No01/29/2025How often do you attend meetings of the clubs or organizations you belong to?Never01/29/2025re you , , , , never , or living with a partner?Hnjvwzyr67/25/2025UDIT-C AnswerDate RecordedQ1: How often do you have a drink containing alcohol?Never 01/29/2025Q2: How many drinks containing alcohol do you have on a typical day when you are drinking?Patient does not drink01/29/2025Q3: How often do you have six or more drinks on one occasion?Never01/29/2025Overall Financial Resource Strain (CARDIA)AnswerDate RecordedHow hard is it for you to pay for the very basics like food, housing, medical care, and heating?Somewhat hard01/29/2025 PHQ-2AnswerDate RecordedPatient Health Questionnaire-2 Dwcdi587[facility] [place] [facility] - Occupational Stress QuestionnaireAnswerDate RecordedDo you feel stress - tense, restless, nervous, or anxious, or unable to sleep at night because yourmind is troubled all the time - these days?To some lgktpb6701/29/2025Exercise Vital SignAnswerDate RecordedOn average, how many days per week do you engage in moderate to strenuous exercise (like a brisk walk)?2 days01/29/2025On average, how many minutes do you engage in exercise at this level?20 min01/29/2025Hunger Vital SignAnswerDate RecordedWithin the past 12 months, you worried that your food would run out before you got the money to buy more.Never true01/29/2025Within the past 12 months, the food you bought just didn't last and you didn't have money to get more.Never true01/29/2025PRAPARE - TransportationAnswerDate RecordedIn the past 12 months, has lack of transportation kept you from medical appointments or from getting medications?No 01/29/2025In the past 12 months, has lack of transportation kept you from meetings, work, or from getting things needed for daily living?No01/29/2025 Housing Stability Vital SignAnswerDate RecordedIn the last 12 months, was there a time when you were not able to pay the mortgage or rent on time?No08/10/2023In the last 12 months, how many places have you lived?In the last 12 months, was there a time when you did not have a steady place to sleep or slept in boqueronelter (including now)?No08/10/2023Housing Stability Vital SignAnswerDate RecordedIn the last 12 months, was there a time when you were not able to pay the mortgage or rent on time?Patient rasmyryy30/25/2025Number of Times Moved in the Last YearNot on file01/29/2025t any time in the past 12 months, were you homeless or living in a [place] (including now)?No01/29/2025Comments UnknownSex and Gender InformationValueDate RecordedSex Assigned at BirthNot on fileLegal XrkKvawek30/15/2023 11:46 PM EDTGender IdentityNot on fileSexual OrientationNot on file Last Filed Vital Signs Vital SignReadingTime TakenCommentsBlood Dvczzwul592/6607 4:52 PM EDT Rwvwx1890 4:52 PM ESODcoiofkljuk24.7 ??C (98 ??F)02/05/2025 4:52 PM EDT Respiratory Krbn5258 4:52 PM EDTOxygen Dviulogywd70%02/05/2025 4:52 PM EDTInhaled Oxygen Concentration--Uxamun26.1 kg (128 lb)02/05/2025 4:52 PM EDT Pgnlub410.6 cm (5' 4 )10/15/2024 5:20 PM EDTBody Mass Index21.9710/15/2024 5:20 PM EDT Plan of Treatment DateTypeDepartmentCare Team (Latest Contact Info)Ppepeawjatn74/03/2026 3:50 PM ESTOffice Visit [facility] [address] [place] [phone] Gabriella Hackett, PHLEBOTOMY SPECIALIST-OYSTER FARMER [address] [place] [address] Insurance Care Teams Team MemberRelationshipSpecialtyStart DateEnd Date Abel Lemus MD PCP - GeneralFaorly Medicine10/02/23 Joyce Almeida NP Nurse PractitionerSaint [facility]08/07/22 Joyce Almeida NP Nurse PractitionerSaint [facility]10/02/23 Kerri Romeo DO [address] [place] [address] Referring PhysicianNeurology10/15/24
--- OUTSIDE RECORDS SUMMARY | 2025-08-01 01:07 | XMS_ITS | Clinical Summary ---
Author Organization [facility] Address [address] [place] [address] Care Team Providers Care Mine Equipment Design Engineer Name Role Phone Joyce Almeida MD Primary Care Provider [phone] Allergies No known active allergies Medications MedicationSigDispense QuantityRefillsLast FilledStart DateEnd DateStatus cetirizine (ZyrTEC) 10 mg tablet Take 10 mg by mouth in the morning.03/22/2022ctive rizatriptan (Maxalt) 10 mg tablet 10 mg.04/02/2024ctive gabapentin (Neurontin) 100 mg capsule Take 100 mg by mouth two times daily.Active Active Problems ProblemNoted DateDiagnosed DateChest pain05/10/2024Shortness of dwjfqq7405/10/2024 Emorsmcyzsio23/04/2024ure wkadcnakeuewwlbjpzwx34/04/2024 Family History Medical HistoryRelationNameCommentsHeart diseaseFatherHeart failureFatherNo Known ProblemsMotherRelationNameStatusCommentsFatherMother Social History Tobacco UseTypesPacks/DayYears UsedDateSmoking Tobacco: Every DayCigarettes0.330 Smokeless Tobacco: NeverAlcohol UseStandard Drinks/WeekCommentsNever0 (1 standard drink = 0.6 oz pure alcohol)CommentsUnknownSex and Gender InformationValueDate RecordedSex Assigned at BirthNot on fileLegal SexFemale 05/01/2024 1:19 PM EDTGender IdentityNot on fileSexual OrientationNot on file Last Filed Vital Signs Vital SignReadingTime TakenCommentsBlood Odcgmvrg576/7910 3:17 PM EDT Wqyqw29020 3:17 PM EDTTemperature--Respiratory Rate--Oxygen Saturation 98%05/10/2024 3:17 PM EDTInhaled Oxygen Concentration--Tjigmn00.2 kg (135 lb) 05/10/2024 3:17 PM KLANzuknf428.6 cm (5' 4 )05/10/2024 3:17 PM EDTBody Mass Index23.171 3:17 PM EDT Plan of Treatment Health MaintenanceDue DateLast DoneCommentsCT Wewdgfpwokqa1968Colonoscopy 1970FOBT1970 1337Jbtdkchgzjnts1968Depression Ljyfqcwmp51/12/1980 Hepatitis B Vaccines (1 of 3 - 19+ 3-dose series)01/16/1987Pneumococcal Vaccine: Pediatrics (0 to 5 Years) and At-Risk Patients (6 to 64 Years) (1 of 2 - PCV) 01/16/1987Pap Smear01/16/1989Adult Ovpafkr8001/16/1990Cervical Cancer Screening 01/16/1998HPV/Xgpgnb9601/16/1998Zoster Vaccines (1 of 2)01/16/2018COVID-19 Vaccine (1 - season)2025Influenza Vaccine (#1)2025FIT07/20/2025 07/20/20240632Nbguyjjee46/03/202605/olorectal Cancer Rmgotzuvv44/14/2027 FIT-DNA/HIB VaccinesAged OutNo longer eligible based on patient's age to complete this topicHPV VaccinesAged OutNo longer eligible based on patient's age to complete this topicIPV VaccinesAged OutNo longer eligible based on patient's age to complete this topicMeningococcal B VaccineAged OutNo longer eligible based on patient's age to complete this topicMeningococcal VaccineAged OutNo longer eligible based on patient's age to complete this topic Rotavirus VaccinesAged OutNo longer eligible based on patient's age to complete this topic Insurance [address] [place] [address] Care Teams Team MemberRelationshipSpecialtyStart DateEnd Date Joyce Almeida MD [address] [place] [address] PCP - GeneralNurse Jitwreetzeqh14/4/24
--- NOTE | 2025-08-01 01:18 | ED.ABDPAIN1 ---
HPI - Abdominal Pain General Chief Complaint: Abdominal Pain Stated Complaint: ABDOMINAL PAIN Time Seen by Provider: 08/01/25 00:59 Source: patient Mode of arrival: walk-in Limitations: no limitations History of Present Illness HPI narrative: history of fibromyalgia. extensive workup in the past for chest pain including stress test, echo and endoscopy by GI and ENT. has not felt well for the past 7 days. Epigastric abdominal pain and substernal chest pain. Abdominal pain increased tonight. Also episodes of diarrhea. No fever or dyspnea Related Data Home Medications ?Medication ?Instructions ?Recorded ?Confirmed duloxetine 30 mg capsule,delayed 30 mg PO DAILY 08/01/25 08/01/25 release (Cymbalta) gabapentin 100 mg capsule 300 mg PO DAILY 08/01/25 08/01/25 Allergies Allergy/AdvReac Type Severity Reaction Status Date / Time nitrofurantoin (From Allergy Unknown itchin Verified 08/01/25 00:00 Macrobid) Review of Systems ROS Status of ROS 10 or more systems reviewed and unremarkable except as noted in history and below PFSH PFSH Social History Smoking status: Current every day smoker Little interest or pleasure in doing things: several days Feeling down, depressed, or hopeless: several days Exam Constitutional Vital Signs, click to edit/add: Last Vital Signs Temp 97.9 F 07/31/25 23:50 Pulse 71 07/31/25 23:50 Resp 16 07/31/25 23:50 BP 124/79 07/31/25 23:50 Pulse Ox 100 07/31/25 23:50 O2 Del Method Room Air 07/31/25 23:50 Common normals: no apparent distress, average body habitus, oriented x3, no limitations, healthy appearing, alert and well nourished [facility] Common normals: normocephalic and head/scalp atraumatic Eye Common normals: EOMs intact bilaterally and conjunctivae normal Chest Common normals: palpation of chest normal Respiratory Common normals: normal respiratory effort, no retractions, no use of accessory muscles and clear to auscultation bilaterally Cardio Common normals: regular rate, regular rhythm, S1 normal heart sound and S2 normal heart sound GI Other: epigastric and RUQ tenderness Extremity Common normals: normal to inspection and full ROM Neuro Common normals: oriented x3, CN's II-XII intact bilaterally, moves all extremities and no focal motor deficits Psych Appearance: grossly normal Course Vital Signs Vital signs: Vital Signs Temperature 97.9 F 07/31/25 23:50 Pulse Rate 71 07/31/25 23:50 Respiratory Rate 16 07/31/25 23:50 Blood Pressure 124/79 07/31/25 23:50 Pulse Oximetry 100 07/31/25 23:50 Oxygen Delivery Method Room Air 07/31/25 23:50 Temperature 97.9 F 07/31/25 23:50 Pulse Rate 71 07/31/25 23:50 Respiratory Rate 16 07/31/25 23:50 Blood Pressure 124/79 07/31/25 23:50 Pulse Oximetry 100 07/31/25 23:50 Oxygen Delivery Method Room Air 07/31/25 23:50 MDM - Abdominal Pain MDM Narrative Medical decision making narrative: CT returns with findings of enteritis and mesenteric adenitis. also UTI Lab Data Labs: Lab Results 08/01/25 08/01/25 Range/Units 00:47 01:30 WBC 4.2 (4.0-11.0) 10^3/uL RBC 4.78 (4.20-5.40) 10^6/uL Hgb 14.5 (12.0-16.0) g/dL Hct 41.7 (36.0-48.0) % MCV 87.2 (81.0-99.0) fL MCH 30.3 (26.7-34.0) pg MCHC 34.8 (29.9-35.2) g/dL RDW 12.7 (11.0-15.0) % Plt Count 194 (150-450) 10^3/uL MPV 11.3 (9.5-13.5) fL Neut % (Auto) 43.6 (43.0-75.0) % Lymph % (Auto) 45.3 (20.5-60.0) % [place] % (Auto) 9.5 (1.7-12.0) % Eos % (Auto) 1.4 (0.9-7.0) % Baso % (Auto) 0.2 (0.2-2.0) % Neut # (Auto) 1.8 (1.4-6.5) 10^3/uL Lymph # (Auto) 1.9 (1.2-3.8) 10^3/uL [place] # (Auto) 0.4 (0.3-0.8) 10^3/uL Eos # (Auto) 0.1 (0.0-0.7) 10^3/uL Baso # (Auto) 0.0 (0.0-0.1) 10^3/uL Abs Immat Gran (auto) 0.00 (0.00-0.03) 10^3/uL Imm/Tot Granulo (auto) 0.0 (0.0-0.5) % Sodium 140 (136-145) mmol/L Potassium 4.4 (3.5-5.1) mmol/L Chloride 105 (98-107) mmol/L Carbon Dioxide 28.2 (21.0-32.0) mmol/L Anion Gap 11.2 BUN 7.0 (7.0-18.0) mg/dL Creatinine 0.65 (0.55-1.02) mg/dL Est GFR ( Amer) >60 (>=60 mL/min/1.73m^2) Est GFR (Non-Af Amer) >60 (>=60 mL/min/1.73m^2) BUN/Creatinine Ratio 10.8 Glucose 109 H (74-106) mg/dL Lactate 0.8 (0.4-2.0) mmol/L Calcium 9.2 (8.5-10.1) mg/dL Total Bilirubin 0.4 (0.2-1.0) mg/dL AST 27 (15-37) U/L ALT 27 (14-59) U/L Alkaline Phosphatase 97 (46-116) U/L Troponin I High Sens 7.4 (4.0-51.3) pg/mL Total Protein 7.2 (6.4-8.2) g/dL Albumin 3.6 (3.4-5.0) g/dL Globulin 3.6 g/dL Albumin/Globulin Ratio 1.0 Lipase 27.0 (16.0-77.0) U/L Urine Color Lt. yellow (YELLOW) Urine Clarity Clear (CLEAR) Urine pH 8.5 (5.0-9.0) Ur Specific [place] 1.015 (1.005-1.025) Urine Protein Negative (NEG/TRACE) mg/dL Urine Glucose (UA) Negative (NEGATIVE) mg/dL Urine Ketones 15 A (NEGATIVE) mg/dL Urine Occult Blood Negative (NEGATIVE) Urine Nitrite Negative (NEGATIVE) Urine Bilirubin Negative (NEGATIVE) Urine Urobilinogen 0.2 (0.2-1.0) EU/dL Ur Leukocyte Esterase Small A (NEGATIVE) Urine RBC 0-2 (0-2) #/HPF Urine WBC 2-5 A (NONE SEEN) #/HPF Ur Squamous Epith Cells Few A (NONE/RARE) #/LPF Urine Crystals None seen (None Seen) #/HPF Urine Bacteria Trace A (NONE SEEN) #/HPF Urine Casts None seen (NONE SEEN) #/LPF Urine Mucus Trace A (NONE SEEN) Ur Culture Indicated? Yes-[facility] [place] Discharge Plan Discharge Chief Complaint: Abdominal Pain Clinical Impression: Acute mesenteric adenitis, Enteritis, UTI (urinary tract infection) Patient Disposition: Home, Self-Care Prescriptions / Home Meds: No Action duloxetine [Cymbalta] 30 mg capsule,delayed release(DR/EC) 30 mg PO DAILY gabapentin 100 mg capsule 300 mg PO DAILY Print Language: Vietnamese Instructions: Urinary Tract Infection in Women (ED), Adenitis (ED), Enteritis (ED) Additional Instructions: follow up with your doctor early next week for recheck Referrals: Joyce Almeida NP [Primary Care Provider, Family Practice] - 1 week Discharge Date/Time: 08/01/25 04:13
--- NOTE | 2025-08-01 01:21 | XR_ITS ---
[address] [address] Patient Name: EARL BERKOWITZ MRN: [id number] date: 1970 Sex: F Assigned Patient Location: ER Current Patient Location: Accession/Order Number: [id number] Exam Date: 08/01/2025 01:35 Report Date: 08/01/2025 08:21 At the request of: JONNY CALIXTO MD Procedure: XR chest 1V XR chest 1V 08/01/2025 1:41 AM SIGNS AND SYMPTOMS: ^chest pain PROTOCOL: Frontal radiograph of the chest COMPARISON: 06/12/2024 FINDINGS: The trachea is midline. The heart and mediastinal structures are within normal limits. The lung parenchyma is clear. The bony thorax is intact. XR/XR chest 1V IMPRESSION: No acute cardiopulmonary pathology. Impression dictated by: Jewel Gimenez M.D. 08/01/2025 8:21 AM Dictation Location: [place] [address] Electronically authenticated by: [id number] Y Date: 08/01/2025 08:21
[2025-08-01] MEDS: 0.9 % SODIUM CHLORIDE 1,000 ML 999 ML IV (01:32)
[2025-08-01 01:33] LABS: Hematocrit 41.7 % (36.0-48.0); Hemoglobin 14.5 g/dL (12.0-16.0); Immature Granulocytes Abs Auto 0.00 10^3/uL (0.00-0.03); Immature Granulocytes Pct Auto 0.0 % (0.0-0.5); Lymphocytes Absolute Auto 1.9 10^3/uL (1.2-3.8); Mean Corpuscular HGB Conc 34.8 g/dL (29.9-35.2); Mean Corpuscular Hemoglobin 30.3 pg (26.7-34.0); Mean Corpuscular Volume 87.2 fL (81.0-99.0); Platelet Count 194 10^3/uL (150-450); Red Blood Count 4.78 10^6/uL (4.20-5.40); White Blood Count 4.2 10^3/uL (4.0-11.0)
[2025-08-01 01:41] LABS: Glucose Urine UA NEGATIVE (NEGATIVE)
[2025-08-01 01:42] LABS: Anion Gap 11.2
[2025-08-01 01:44] LABS: Alanine Aminotransferase 27 U/L (14-59); Albumin Globulin Ratio 1.0; Albumin Level 3.6 g/dL (3.4-5.0); Alkaline Phosphatase 97 U/L (46-116); Aspartate Amino Transferase 27 U/L (15-37); Blood Urea Nitrogen 7.0 mg/dL (7.0-18.0); Calcium 9.2 mg/dL (8.5-10.1); Carbon Dioxide 28.2 mmol/L (21.0-32.0); Chloride 105 mmol/L (98-107); Estimated GFR (African America >60 (>=60 mL/min/1.73m^2); Estimated GFR (Non-African Ame >60 (>=60 mL/min/1.73m^2); Globulin 3.6 g/dL; Glucose 109 mg/dL (74-106); Lactate/Lactic Acid 0.8 mmol/L (0.4-2.0); Lipase 27.0 U/L (16.0-77.0); Potassium 4.4 mmol/L (3.5-5.1); Sodium 140 mmol/L (136-145); Total Protein 7.2 g/dL (6.4-8.2)
[2025-08-01 01:52] LABS: Cast Seen? NONE SEEN #/LPF (NONE SEEN); Crystals Seen? None Seen #/HPF (None Seen); Urine Culture Indicated YES-FRMC
== END 2025-08-01 04:13 | disposition home or self-care (01) ==
PROVIDERS: Emergency Provider Internal Medicine; PCP Nurse Practitioner
DX: K52.9 Noninfective gastroenteritis and colitis, unspecified (principal); I88.0 Nonspecific mesenteric lymphadenitis; N39.0 Urinary tract infection, site not specified; M79.7 Fibromyalgia; F17.200 Nicotine dependence, unspecified, uncomplicated
CPT/HCPCS: 36415; 71045; 74176; 80053; 81001; 83605; 83690; 84484; 85025; 87086; 96360; 99284; Q9966